=== PATIENT | female | born 1990 | race Caucasian/White ===

== ENCOUNTER → 2016-07-05 | Outpatient (CLI) | payer OTHER ==
[2016-02-04 19:41] VITALS: BP 130/75
[~2016-07-05] MED LIST: ALPR0.5T PO; BUSP15TA PO; CYCL10TA2 PO; ESCI10TA PO; GABA800T2 PO; NAPR500T3 PO; SULF1TAB24 PO
[2016-07-05 14:39] LABS: BASO % 0 % (0-3); EOS % 1 % (0-3); HEMATOCRIT 40.1 % (36.0-47.0); HEMOGLOBIN 13.3 g/dL (12.0-15.5); LYMPH # 1.4 x10^3/uL (1.0-4.8); LYMPH % 12 % (24-48); MEAN CORPUSCULAR HEMOGLOBIN 31 pg (25-35); MEAN CORPUSCULAR HGB CONC 33 g/dL (31-37); MEAN CORPUSCULAR VOLUME 94 fL (79-100); MONO % 5 % (0-9); NEUT % 81 % (31-73); PLATELET COUNT 245 x10^3/uL (140-400); RED BLOOD COUNT 4.25 x10^6/uL (3.50-5.40); RED CELL DISTRIBUTION WIDTH 14.1 % (11.5-14.5); WHITE BLOOD COUNT 11.6 x10^3/uL (4.0-11.0)
[2016-07-05 14:53] LABS: ALBUMIN 4.2 g/dL (3.4-5.0); ALBUMIN/GLOBULIN RATIO 1.4 (1.0-1.7); CALCIUM 9.1 mg/dL (8.5-10.1); CREATININE 0.7 mg/dL (0.6-1.0); GFR 101.1; POTASSIUM 4.2 mmol/L (3.5-5.1); TOTAL BILIRUBIN 0.4 mg/dL (0.2-1.0); TOTAL PROTEIN 7.3 g/dL (6.4-8.2)
== END | disposition home or self-care (01) ==
LOC: LAB 14:22
PROVIDERS: ATTEND Psychiatry & Neurology Psychiatry
DX: F31.63 Bipolar disorder, current episode mixed, severe, without psychotic features (principal)
CPT/HCPCS: 36415; 80053; 85027

== ENCOUNTER 2016-08-28 07:47 | Emergency (ER) | payer OTHER ==
[~2016-08-28] VITALS: Ht 157.5 cm; Wt 72.6 kg
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
[2016-08-28] MEDS ORDERED: BENZOCAINE/MENTHOL LOZENGE. PO STA (08:29)
[2016-08-28] MEDS ORDERED: IV NORMAL SALINE 1000ML BAG 1,000 ML IV ONE (08:30)
[2016-08-28 09:26] LABS: BASO % 0 % (0-3); EOS % 1 % (0-3); HEMOGLOBIN 13.4 g/dL (12.0-15.5); LYMPH # 1.3 x10^3/uL (1.0-4.8); LYMPH % 10 % (24-48); MEAN CORPUSCULAR HEMOGLOBIN 32 pg (25-35); MEAN CORPUSCULAR HGB CONC 35 g/dL (31-37); MEAN CORPUSCULAR VOLUME 90 fL (79-100); MONO % 7 % (0-9); NEUT % 82 % (31-73); PLATELET COUNT 250 x10^3/uL (140-400); RED BLOOD COUNT 4.21 x10^6/uL (3.50-5.40); RED CELL DISTRIBUTION WIDTH 12.5 % (11.5-14.5); WHITE BLOOD COUNT 13.8 x10^3/uL (4.0-11.0)
[2016-08-28 09:37] LABS: CALCIUM 9.3 mg/dL (8.5-10.1); CREATININE 0.8 mg/dL (0.6-1.0); GFR 86.7; POTASSIUM 3.5 mmol/L (3.5-5.1)
[2016-08-28 09:42] LABS: ETHANOL < 10 mg/dL (0-10)
[2016-08-28 09:43] LABS: ALBUMIN 4.4 g/dL (3.4-5.0); ALBUMIN/GLOBULIN RATIO 1.2 (1.0-1.7); MAGNESIUM 2.3 mg/dL (1.8-2.4); TOTAL BILIRUBIN 0.7 mg/dL (0.2-1.0); TOTAL PROTEIN 8.1 g/dL (6.4-8.2)
[2016-08-28] MEDS ORDERED: KETOROLAC TROMETHAMINE 30 MG/ML INJ. IV ONE (10:45)
[2016-08-28 11:08] VITALS: BP 135/81
[2016-08-28 11:19] LABS: BILIRUBIN,URINE NEGATIVE (NEG); GLUCOSE,URINE NEGATIVE (NEG); NITRITE,URINE POSITIVE (NEG); PROTEIN,URINE NEGATIVE (NEG-TRACE)
[2016-08-28 11:26] LABS: BARBITURATES NEG (NEG); BENZODIAZEPINES POS (NEG); CANNABINOIDS POS (NEG); COCAINE NEG (NEG); METHADONE NEG (NEG); OPIATES POS (NEG); PHENCYCLIDINE NEG (NEG)
[2016-08-28 11:30] LABS: BACTERIA,URINE MANY /HPF (0-FEW); RBC,URINE 0 /HPF (0-2); SQUAMOUS EPITHELIAL CELL,UR MOD /LPF
[2016-08-28] MEDS ORDERED: CIPR250T30 PO (11:37)
[2016-08-30 21:09] LABS: HERPES SIMPLEX TYPE 1 Negative (Negative); HERPES SIMPLEX TYPE 2 Negative (Negative)
== END 2016-08-28 11:31 | disposition home or self-care (01) ==
LOC: ER 07:47
DX: F12.10 Cannabis abuse, uncomplicated (principal); J02.9 Acute pharyngitis, unspecified; N39.0 Urinary tract infection, site not specified; F41.9 Anxiety disorder, unspecified; R00.0 Tachycardia, unspecified; F15.10 Other stimulant abuse, uncomplicated; R21 Rash and other nonspecific skin eruption
CPT/HCPCS: 36415; 80053; 80305; 80320; 81001; 81025; 82550; 83735; 85027; 87086; 87186; 87491; 87529; 87591; 96361; 96374; 96375; 96376; 99284; G0480; J1885; J2060; J7030; 80329; G0481

== ENCOUNTER 2016-08-28 21:52 | Inpatient (IN) | payer OTHER ==
[~2016-08-28] VITALS: Ht 157.5 cm; Wt 72.6 kg
[~2016-08-28 21:52] MED LIST changes: +CIPR250T30 PO
[2016-08-28] MEDS ORDERED: HALOPERIDOL LACTATE 5 MG/ML VIAL. ONE (22:50)
[2016-08-28] MEDS ORDERED: IV NORMAL SALINE 1000ML BAG 1,000 ML IV SCH (23:00)
[2016-08-28] MEDS ORDERED: HALOPERIDOL LACTATE 5 MG/ML VIAL. IM ONE (23:15)
[2016-08-28 23:17] LABS: BASO % 0 % (0-3); EOS % 2 % (0-3); HEMATOCRIT 37.4 % (36.0-47.0); HEMOGLOBIN 12.6 g/dL (12.0-15.5); LYMPH # 1.7 x10^3/uL (1.0-4.8); LYMPH % 13 % (24-48); MEAN CORPUSCULAR HEMOGLOBIN 31 pg (25-35); MEAN CORPUSCULAR HGB CONC 34 g/dL (31-37); MEAN CORPUSCULAR VOLUME 92 fL (79-100); MONO % 7 % (0-9); NEUT % 77 % (31-73); PLATELET COUNT 240 x10^3/uL (140-400); RED BLOOD COUNT 4.06 x10^6/uL (3.50-5.40); RED CELL DISTRIBUTION WIDTH 12.4 % (11.5-14.5); WHITE BLOOD COUNT 13.4 x10^3/uL (4.0-11.0)
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
[2016-08-28 23:29] LABS: CALCIUM 9.4 mg/dL (8.5-10.1); CREATININE 0.9 mg/dL (0.6-1.0); GFR 75.7; POTASSIUM 3.8 mmol/L (3.5-5.1)
[2016-08-28 23:35] LABS: ALBUMIN 4.3 g/dL (3.4-5.0); DIRECT BILIRUBIN 0.2 mg/dL (0.0-0.2); MAGNESIUM 2.3 mg/dL (1.8-2.4); TOTAL BILIRUBIN 0.9 mg/dL (0.2-1.0); TOTAL PROTEIN 7.6 g/dL (6.4-8.2)
[2016-08-29 00:22] LABS: BILIRUBIN,URINE SMALL (NEG); GLUCOSE,URINE NEGATIVE (NEG); NITRITE,URINE NEGATIVE (NEG); PH,URINE 5.5; PROTEIN,URINE 30 mg/dL (NEG-TRACE)
[2016-08-29 00:27] LABS: BARBITURATES NEG (NEG); BENZODIAZEPINES POS (NEG); CANNABINOIDS POS (NEG); COCAINE NEG (NEG); METHADONE NEG (NEG); OPIATES POS (NEG); PHENCYCLIDINE NEG (NEG)
[2016-08-29 00:29] LABS: BACTERIA,URINE MANY /HPF (0-FEW); RBC,URINE OCC /HPF (0-2); SQUAMOUS EPITHELIAL CELL,UR FEW /LPF; WBC,URINE 20-40 /HPF (0-4)
[2016-08-29] MEDS: IV NORMAL SALINE 1000ML BAG 1,000 ML IV SCH ×3 (00:29→19:59)
[2016-08-29] MEDS ORDERED: ONDANSETRON PF 4 MG/2 ML VIAL. IV PRN (00:30)
[2016-08-29] MEDS ORDERED: HALOPERIDOL LACTATE 5 MG/ML VIAL. IVP PRN (00:30)
--- NOTE | 2016-08-29 00:53 | ACF ---
Admit Criteria Forms Admit Criteria Forms Admit Criteria Forms MENTAL STATUS CHANGE Clinical Indications for Inpatient Care (Place 'X' for any and all applicable criteria): Ongoing inpatient care may be needed for 1 or more of the following(1)(2)(3)(5)( 6): [X ]I. Suspected serious etiology (eg, medical disorder, PAINT GRINDER event) of altered mental status [ ]II. Danger to self or others not manageable at lower level of care [ ]III. Grave disability (eg, inability to perform self care necessary at lower level of care) [ ]IV. Agitation or inappropriate behavior interfering with care for primary condition (eg, attempting to discontinue lines or drains prematurely, unable to cooperate with respiratory care) [ ]V. Delirium [A] [D][E] as described by 1 or more of the following(26): [ ]a) Delirium due to alcohol or sedative [F] withdrawal [ ]b) Delirium of uncertain etiology that has not responded to appropriate empiric treatment [ ]c) Delirium that prevents performance of a life-sustaining function (eg, feeding or hydrating oneself) [ ]. General contraindications and/or Inappropriate clinical situations for Observational Care in patients with Mental Status Change, when ANY ONE of the following is required: [ ]a) Prediction of prolongation of LOS based on ANY ONE of the following may be considered as a contraindication for observational care 2, 3, 4, 5, 6, 7, 8, 9, 10, 11 [ ]i) Age > 65 yrs. [ ]ii) Patient arriving by ambulance [ ]iii) Patient with high acuity [ ]iv) Patient requiring vital sign monitoring [ ]v) Patient on IV medication [ ]b) Systolic blood pressures greater than or equal to 180mmHg 3, 12 [ ]c) Patient with altered mental status including delirium and other alteration of consciousness, (3) [ ]d) Patient whose discharge disposition will be to a long term home or rehabilitation home should not be managed in Emergency Department Observation Unit. CMS rule requires 3 days hospital stay before such placement.3,13 [ ]e) Patient with failure to thrive due to broad array of etiologies 3,16,17 [ ]f) Inability to ambulate 3,14 Extended stay beyond goal length of stay for the primary condition may be needed until ALL of the following are present(3)(5): [ ]a) Underlying medical etiology of mental status change is absent, or has been established and adequately treated [ ]b) Danger to self or others is absent or manageable at lower level of care. [ ]c) Behavior crisis management, including physical or chemical restraints, is not required or available at lower level of car [ ]d) Substance or alcohol withdrawal is absent or manageable at lower level of care. [ ]e) Behavioral symptoms (eg, agitation, somnolence, inappropriate behavior) are absent, or are manageable at lower level of care. The original [facility] [employer] content created by [facility] has been revised. The portions of the content which have been revised are identified through the use of italic text or in bold, and [facility] has neither reviewed nor approved the modified material. All other unmodified content is copyright [facility]. Please see references footnoted in the original [facility] [employer] edition 2016 TOÑITO MARTI August 29, 2016 00:53
[2016-08-29 02:00] VITALS: BP 120/84
[2016-08-29 07:25] VITALS: BP 115/71
--- NOTE | 2016-08-29 07:34 | EKG ---
[facility] [address] [place] [address] Test Date: 2016-08-29 Test Time: 00:06:18 Pat Name: RHIANNA CONRAD Department: Room: 508 Gender: Female Hypo Dipper: : 1990 Requested By: ERICH FAULKNER Order Number: [id number] Reading MD: Ru Gregorio Measurements Intervals [place] Rate: 95 P: 56 [place]: 156 QRS: 12 QRSD: 90 T: 10 QT: 366 QTc: 463 Interpretive Statements SINUS RHYTHM Electronically Signed On 09-02-2016 13:38:13 CDT by Ru Gregorio
--- NOTE | 2016-08-29 08:30 | PDOC1 ---
History and Physical Date of Admission Date of Admission DATE: 08/29/16 TIME: 08:28 Identification/Chief Complaint Chief Complaint confusion, encephalopathy Problems: Source Source: Chart review, Patient History of Present Illness History of Present Illness Ms. Erickson is a 25 year old female admit overnight for altered mental status. The patient was found wandering in the middle of a road and bystanders, EMS brought her to the emergency department. S/p meth and THC use and treated for UTI, she was delirious and confused in the ER. IV fluid, pt hard asleep this AM 0800/ when awakened at 10am, she complained of severe throat pain, could not swallow , and is emotional and agitated she cannot reach her father by phone Past Medical History Cardiovascular: No pertinent hx Pulmonary: No pertinent hx GI: No pertinent hx Heme/Onc: No pertinent hx Hepatobiliary: No pertinent hx Psych: Anxiety, Addictions Rheumatologic: No pertinent hx Family History Family History: No Significant Social History Drugs: Marijuana, Crystal meth Current Problem List Problem List Problems Medical Problems: (1) Acute encephalopathy Status: Acute (2) Substance abuse Status: Acute (3) UTI (urinary tract infection) Status: Acute Problems: Current Medications Current Medications Current Medications Sodium Chloride 1,000 ml @ 1,000 mls/hr Q1H IV Last administered on 08/28/16 23:00; Start 08/28/16 at 23:00; Stop 08/28/16 at 23:59; Status DC Haloperidol Lactate (Haldol) 5 mg 1X ONCE IM Last administered on 08/28/16 22 :53; Start 08/28/16 at 23:15; Stop 08/28/16 at 23:16; Status DC Lorazepam (Ativan) 2 mg 1X ONCE IM Last administered on 08/28/16 22:52; Start 08/28/16 at 23:15; Stop 08/28/16 at 23:16; Status DC Haloperidol Lactate (Haldol) 5 mg STK-MED ONCE .ROUTE ; Start 08/28/16 at 22:50 ; Stop 08/28/16 at 22:51; Status DC Lorazepam (Ativan) 2 mg STK-MED ONCE .ROUTE ; Start 08/28/16 at 22:50; Stop at 22:51; Status DC Ondansetron HCl (Zofran) 4 mg PRN Q8HRS PRN IV NAUSEA/VOMITING; Start 08/29/16 at 00:30; Stop 08/30/16 at 00:29 Sodium Chloride 1,000 ml @ 100 mls/hr Q10H IV Last administered on 08/29/16 00:29; Start 08/29/16 at 00:29; Stop 08/30/16 at 00:28 Haloperidol Lactate (Haldol) 5 mg PRN Q6HRS PRN IVP AGITATION; Start 08/29/16 at 00:30 Ceftriaxone Sodium 1 gm/ Sodium Chloride 50 ml @ 100 mls/hr Q24H IV Last administered on 08/29/16 04:25; Start 08/29/16 at 05:00 Active Scripts Active Cipro (Ciprofloxacin Hcl) 250 Mg Tablet 1 Tab PO BID Reported Escitalopram Oxalate 10 Mg Tablet 1 Tab PO DAILY Buspirone Hcl 15 Mg Tablet 1 Tab PO BID Xanax (Alprazolam) 0.5 Mg Tablet 1 Tab PO BID Naproxen 500 Mg Tablet 1 Tab PO BID Cyclobenzaprine Hcl 10 Mg Tablet 1 Tab PO TID Gabapentin 800 Mg Tablet 800 Mg PO TID Allergies Allergies: Coded Allergies: No Known Drug Allergies (Unverified , 01/12/16) ROS General: YES: Fatigue, Malaise, No: Chills, Night Sweats, Appetite, Other PSYCHOLOGICAL ROS: YES: Anxiety, Irritablity, Memory difficulties, Obsessive thoughts Eyes: No Blurry vision, No Decreased vision, No Double vision, No Dry eyes, No Excessive tearing, No Eye Pain, No Itchy Eyes, No Loss of vision, No Photophobia , No Scotomata, No Uses contacts, No Uses glasses, No Other HEENT: YES: Oral lesions, Sore Throat, Other (painful swallowing), No: Heacaches, Visual Changes, Hearing change, Nasal congestion, Nasal discharge, Sinus pain, Epistaxis, Sneezing Hematological and Lymphatic: No: Bleeding Problems, Blood Clots, Blood Transfusions, Brusing, Night Sweats, Pallor, Swollen Lymph Nodes, Other Respiratory: No: Cough, Hemoptysis, Orthopnea, Pleuritic Pain, Shortness of breath, SOB with excertion, Sputum Changes, Stridor, Tachypnea, Wheezing, Other Cardiovascular: No Chest Pain, No Palpitations, No Orthopnea, No Paroxysmal Noc. Dyspnea, No Edema, No Lt Headedness, No Other Gastrointestinal: No Nausea, No Vomiting, No Abdominal Pain, No Diarrhea, No Constipation, No Melena, No Hematochezia, No Other Genitourinary: No Dysuria, No Frequency, No Incontinence, No Hematuria, No Retention, No Discharge, No Urgency, No Pain, No Flank Pain, No Other, No , No , No , No , No , No , No Musculoskeletal: No Gait Disturbance, No Joint Pain, No Joint Stiffness, No Joint Swelling, No Muscle Pain, No Muscular Weakness, No Pain In:, No Swelling In:, No Other Neurological: No Behavorial Changes, No Bowel/Bladder ControlChng, No Confusion , No Dizziness, No Gait Disturbance, No Headaches, No Impaired Coord/balance, No Memory Loss, No Numbness/Tingling, No Seizures, No Speech Problems, No Tremors, No Visual Changes, No Weakness, No Other Skin: No Dry Skin, No Eczema, No Hair Changes, No Lumps, No Mole Changes, No Mottling, No Nail Changes, No Pruritus, No Rash, No Skin Lesion Changes, No Other, No Acne Physical Exam General: Oriented X3 HEENT: Atraumatic, PERRLA, Other (folliculat exudate on uvula) Heart: S1S2, no murmurs Rectal Exam: not examined Extremities: No clubbing, No cyanosis, No edema Skin: No significant lesion Neuro: Normal gait, Strength at 5/5 X4 ext Psych/Mental Status: Other (emotional, tangential) Vitals Vitals Vital Signs Date Time Temp Pulse Resp B/P (MAP) Pulse Ox O2 Delivery O2 Flow Rate FiO2 08/29/16 02:00 97.5 82 18 120/84 (96) 100 Room Air 97.5 Labs Labs Laboratory Tests Test 08/28/16 00:10 08/28/16 23:00 Urine Collection Type U cath Urine Color [place]la Urine Clarity Clear Urine pH 5.5 Urine Specific [place] >=1.030 Urine Protein 30 mg/dL (NEG-TRACE) Urine Glucose (UA) Negative mg/dL (NEG) Urine Ketones (Stick) >=80 mg/dL (NEG) Urine Blood Trace (NEG) Urine Nitrite Negative (NEG) Urine Bilirubin Small (NEG) Urine Urobilinogen Dipstick 1.0 mg/dL (0.2 mg/dL) Urine Leukocyte Esterase Large (NEG) Urine RBC Occ /HPF (0-2) Urine WBC 20-40 /HPF (0-4) Urine Squamous Epithelial Cells Few /LPF Urine Bacteria Many /HPF (0-FEW) Urine Mucus Marked /LPF Urine Opiates Screen Pos (NEG) Urine Methadone Screen Neg (NEG) Urine Barbiturates Neg (NEG) Urine Phencyclidine Screen Neg (NEG) Urine Amphetamine/Methamphetamine Pos (NEG) Urine Benzodiazepines Screen Pos (NEG) Urine Cocaine Screen Neg (NEG) Urine Cannabinoids Screen Pos (NEG) Urine Ethyl Alcohol Neg (NEG) White Blood Count 13.4 x10^3/uL (4.0-11.0) Red Blood Count 4.06 x10^6/uL (3.50-5.40) Hemoglobin 12.6 g/dL (12.0-15.5) Hematocrit 37.4 % (36.0-47.0) Mean Corpuscular Volume 92 fL (79-100) Mean Corpuscular Hemoglobin 31 pg (25-35) Mean Corpuscular Hemoglobin Concent 34 g/dL (31-37) Red Cell Distribution Width 12.4 % (11.5-14.5) Platelet Count 240 x10^3/uL (140-400) Neutrophils (%) (Auto) 77 % (31-73) Lymphocytes (%) (Auto) 13 % (24-48) Monocytes (%) (Auto) 7 % (0-9) Eosinophils (%) (Auto) 2 % (0-3) Basophils (%) (Auto) 0 % (0-3) Neutrophils # (Auto) 10.4 x10^3uL (1.8-7.7) Lymphocytes # (Auto) 1.7 x10^3/uL (1.0-4.8) Monocytes # (Auto) 1.0 x10^3/uL (0.0-1.1) Eosinophils # (Auto) 0.3 x10^3/uL (0.0-0.7) Basophils # (Auto) 0.0 x10^3/uL (0.0-0.2) Sodium Level 145 mmol/L (136-145) Potassium Level 3.8 mmol/L (3.5-5.1) Chloride Level 106 mmol/L (98-107) Carbon Dioxide Level 25 mmol/L (21-32) Anion Gap 14 (6-14) Blood Urea Nitrogen 13 mg/dL (7-20) Creatinine 0.9 mg/dL (0.6-1.0) Estimated GFR (Cockcroft-Gault) 75.7 Glucose Level 82 mg/dL (70-99) Calcium Level 9.4 mg/dL (8.5-10.1) Magnesium Level 2.3 mg/dL (1.8-2.4) Total Bilirubin 0.9 mg/dL (0.2-1.0) Direct Bilirubin 0.2 mg/dL (0.0-0.2) Aspartate Amino Transf (AST/SGOT) 35 U/L (15-37) Alanine Aminotransferase (ALT/SGPT) 29 U/L (14-59) Alkaline Phosphatase 83 U/L (46-116) Total Protein 7.6 g/dL (6.4-8.2) Albumin 4.3 g/dL (3.4-5.0) Ethyl Alcohol Level < 10 mg/dL (0-10) Laboratory Tests Test 08/28/16 23:00 White Blood Count 13.4 x10^3/uL (4.0-11.0) Red Blood Count 4.06 x10^6/uL (3.50-5.40) Hemoglobin 12.6 g/dL (12.0-15.5) Hematocrit 37.4 % (36.0-47.0) Mean Corpuscular Volume 92 fL (79-100) Mean Corpuscular Hemoglobin 31 pg (25-35) Mean Corpuscular Hemoglobin Concent 34 g/dL (31-37) Red Cell Distribution Width 12.4 % (11.5-14.5) Platelet Count 240 x10^3/uL (140-400) Neutrophils (%) (Auto) 77 % (31-73) Lymphocytes (%) (Auto) 13 % (24-48) Monocytes (%) (Auto) 7 % (0-9) Eosinophils (%) (Auto) 2 % (0-3) Basophils (%) (Auto) 0 % (0-3) Neutrophils # (Auto) 10.4 x10^3uL (1.8-7.7) Lymphocytes # (Auto) 1.7 x10^3/uL (1.0-4.8) Monocytes # (Auto) 1.0 x10^3/uL (0.0-1.1) Eosinophils # (Auto) 0.3 x10^3/uL (0.0-0.7) Basophils # (Auto) 0.0 x10^3/uL (0.0-0.2) Sodium Level 145 mmol/L (136-145) Potassium Level 3.8 mmol/L (3.5-5.1) Chloride Level 106 mmol/L (98-107) Carbon Dioxide Level 25 mmol/L (21-32) Anion Gap 14 (6-14) Blood Urea Nitrogen 13 mg/dL (7-20) Creatinine 0.9 mg/dL (0.6-1.0) Estimated GFR (Cockcroft-Gault) 75.7 Glucose Level 82 mg/dL (70-99) Calcium Level 9.4 mg/dL (8.5-10.1) Magnesium Level 2.3 mg/dL (1.8-2.4) Total Bilirubin 0.9 mg/dL (0.2-1.0) Direct Bilirubin 0.2 mg/dL (0.0-0.2) Aspartate Amino Transf (AST/SGOT) 35 U/L (15-37) Alanine Aminotransferase (ALT/SGPT) 29 U/L (14-59) Alkaline Phosphatase 83 U/L (46-116) Total Protein 7.6 g/dL (6.4-8.2) Albumin 4.3 g/dL (3.4-5.0) Ethyl Alcohol Level < 10 mg/dL (0-10) VTE Prophylaxis Ordered VTE Prophylaxis Devices: No VTE Pharmacological Prophylaxi: No Assessment/Plan Assessment/Plan polysubstance abuse encephalopathy, toxic, UTI, sepsis strep pharyngitis, concern for mult infections. pt declined HIV testing to me now. admitted, DC when able to perform ADls LISSY STRONG MD August 29, 2016 08:30
[2016-08-29] MEDS ORDERED: ACETAMINOPHEN 325 MG TABLET. PO PRN (10:45)
[2016-08-29] MEDS: NAPROXEN 500 MG TABLET PO SCH ×2 (10:46→20:02)
[2016-08-29] MEDS: busPIRone 5 MG TABLET. PO SCH ×2 (10:46→20:01)
[2016-08-29] MEDS: ALPRAZolam 0.5 MG TABLET PO SCH ×2 (10:47→20:01)
[2016-08-29] MEDS: GABAPENTIN 400 MG CAPSULE. PO SCH ×3 (10:47→20:03)
[2016-08-29] MEDS: BENZOCAINE/MENTHOL LOZENGE. PO PRN ×3 (10:49→20:00)
[2016-08-29] MEDS: ESCITALOPRAM 10 MG TABLET. PO SCH (10:49)
[2016-08-29] MEDS: NYSTATIN 100,000 UNITS/ML 5 ML ORAL.SUSP. SWSW SCH ×4 (10:57→20:03)
[2016-08-29 11:02] LABS: NEGATIVE OBC STREP NEG; POSITIVE OBC STREP POS
[2016-08-29 11:28] VITALS: BP 127/76
[2016-08-29] MEDS ORDERED: ALPRAZolam 1 MG TABLET PO PRN (15:30)
[2016-08-29 15:45] VITALS: BP 121/73
[2016-08-29 19:00] VITALS: BP 125/81
[2016-08-29] MEDS: CYCLOBENZAPRINE 10 MG TABLET. PO PRN (20:07)
[2016-08-29 22:26] VITALS: BP 141/90
[2016-08-30 04:26] LABS: BASO % 1 % (0-3); EOS % 7 % (0-3); HEMATOCRIT 35.5 % (36.0-47.0); HEMOGLOBIN 11.9 g/dL (12.0-15.5); LYMPH # 1.7 x10^3/uL (1.0-4.8); LYMPH % 35 % (24-48); MEAN CORPUSCULAR HEMOGLOBIN 32 pg (25-35); MEAN CORPUSCULAR HGB CONC 34 g/dL (31-37); MEAN CORPUSCULAR VOLUME 94 fL (79-100); MONO % 11 % (0-9); NEUT % 46 % (31-73); PLATELET COUNT 208 x10^3/uL (140-400); RED BLOOD COUNT 3.79 x10^6/uL (3.50-5.40); RED CELL DISTRIBUTION WIDTH 12.8 % (11.5-14.5); WHITE BLOOD COUNT 4.9 x10^3/uL (4.0-11.0)
[2016-08-30 04:57] LABS: CALCIUM 8.3 mg/dL (8.5-10.1); CREATININE 0.7 mg/dL (0.6-1.0); GFR 101.1; POTASSIUM 3.7 mmol/L (3.5-5.1)
[2016-08-30 07:00] VITALS: BP 118/79
[2016-08-30] MEDS: NYSTATIN 100,000 UNITS/ML 5 ML ORAL.SUSP. SWSW SCH ×2 (09:03→12:21)
[2016-08-30] MEDS: ESCITALOPRAM 10 MG TABLET. PO SCH (09:03)
[2016-08-30] MEDS: GABAPENTIN 400 MG CAPSULE. PO SCH ×2 (09:04→14:09)
[2016-08-30] MEDS: ALPRAZolam 0.5 MG TABLET PO SCH (09:04)
[2016-08-30] MEDS: busPIRone 5 MG TABLET. PO SCH (09:04)
[2016-08-30] MEDS: NAPROXEN 500 MG TABLET PO SCH (09:04)
--- NOTE | 2016-08-30 10:14 | PDOC ---
Infectious Disease Note ROS ROS Vital Sign Vital Signs Vital Signs Date Time Temp Pulse Resp B/P (MAP) Pulse Ox O2 Delivery O2 Flow Rate FiO2 08/30/16 07:00 97.7 88 20 118/79 (92) 97 Room Air 97.7 Labs Lab Laboratory Tests Test 08/29/16 10:30 08/30/16 04:05 Group A Streptococcus Rapid Negative (NEGATIVE) White Blood Count 4.9 x10^3/uL (4.0-11.0) Red Blood Count 3.79 x10^6/uL (3.50-5.40) Hemoglobin 11.9 g/dL (12.0-15.5) Hematocrit 35.5 % (36.0-47.0) Mean Corpuscular Volume 94 fL (79-100) Mean Corpuscular Hemoglobin 32 pg (25-35) Mean Corpuscular Hemoglobin Concent 34 g/dL (31-37) Red Cell Distribution Width 12.8 % (11.5-14.5) Platelet Count 208 x10^3/uL (140-400) Neutrophils (%) (Auto) 46 % (31-73) Lymphocytes (%) (Auto) 35 % (24-48) Monocytes (%) (Auto) 11 % (0-9) Eosinophils (%) (Auto) 7 % (0-3) Basophils (%) (Auto) 1 % (0-3) Neutrophils # (Auto) 2.3 x10^3uL (1.8-7.7) Lymphocytes # (Auto) 1.7 x10^3/uL (1.0-4.8) Monocytes # (Auto) 0.5 x10^3/uL (0.0-1.1) Eosinophils # (Auto) 0.3 x10^3/uL (0.0-0.7) Basophils # (Auto) 0.0 x10^3/uL (0.0-0.2) Sodium Level 145 mmol/L (136-145) Potassium Level 3.7 mmol/L (3.5-5.1) Chloride Level 109 mmol/L (98-107) Carbon Dioxide Level 27 mmol/L (21-32) Anion Gap 9 (6-14) Blood Urea Nitrogen 11 mg/dL (7-20) Creatinine 0.7 mg/dL (0.6-1.0) Estimated GFR (Cockcroft-Gault) 101.1 Glucose Level 90 mg/dL (70-99) Calcium Level 8.3 mg/dL (8.5-10.1) Objective Assessment Oral ulcerations Vaginal ulcerations - HSV collected 08/28 Ecoli UTI - POA res to quinolone/Bactrim and tetracycline - d/w keysha Substance abuse Plan Plan of Care Can change to po amoxicillin for d/c for 5 days test Add on HIV/RPR Azithromycin 1 gm po times one F/u Primary care for HSV, etc Thank you # [phone] JAVIER LEUNG MD August 30, 2016 10:14
[2016-08-30 11:00] VITALS: BP 107/70
[2016-08-30] MEDS ORDERED: AZITHROMYCIN 250 MG TABLET. PO ONE (11:00)
[2016-08-30] MEDS: CYCLOBENZAPRINE 10 MG TABLET. PO PRN (12:20)
[2016-08-30] MEDS: BENZOCAINE/MENTHOL LOZENGE. PO PRN (12:23)
[2016-08-30 13:16] LABS: NEG OBC UR NEG; POS OBC UR POS
[2016-08-30] MEDS ORDERED: AMOXICILLIN 250 MG CAPSULE. PO SCH (14:00)
[2016-08-30] MEDS ORDERED: AMOX250C PO (14:03)
--- NOTE | 2016-08-30 14:08 | PDOC3 ---
Discharge Summary Visit Information Date of Admission: August 29, 2016 Date of Discharge: August 30, 2016 Admitting Diagnosis: encephalopathy Final Diagnosis polysubstance abuse including meth, THC encephalopathy, toxic, UTI, sepsis strep pharyngitis, anxiety d/o long standing per patient Problems Medical Problems: (1) Acute encephalopathy Status: Acute (2) Substance abuse Status: Acute (3) UTI (urinary tract infection) Status: Acute Brief Hospital Course Allergies Allergies Coded Allergies Type Severity Reaction Last Updated Verified No Known Drug Allergies 01/12/16 No Vital Signs Vital Signs Date Time Temp Pulse Resp B/P (MAP) Pulse Ox O2 Delivery O2 Flow Rate FiO2 08/30/16 11:00 97.7 80 20 107/70 (82) 98 Room Air 97.7 Lab Results Laboratory Tests Test 08/28/16 23:00 08/29/16 10:30 08/30/16 04:05 08/30/16 13:00 White Blood Count 13.4 x10^3/uL (4.0-11.0) 4.9 x10^3/uL (4.0-11.0) Red Blood Count 4.06 x10^6/uL (3.50-5.40) 3.79 x10^6/uL (3.50-5.40) Hemoglobin 12.6 g/dL (12.0-15.5) 11.9 g/dL (12.0-15.5) Hematocrit 37.4 % (36.0-47.0) 35.5 % (36.0-47.0) Mean Corpuscular Volume 92 fL (79-100) 94 fL (79-100) Mean Corpuscular Hemoglobin 31 pg (25-35) 32 pg (25-35) Mean Corpuscular Hemoglobin Concent 34 g/dL (31-37) 34 g/dL (31-37) Red Cell Distribution Width 12.4 % (11.5-14.5) 12.8 % (11.5-14.5) Platelet Count 240 x10^3/uL (140-400) 208 x10^3/uL (140-400) Neutrophils (%) (Auto) 77 % (31-73) 46 % (31-73) Lymphocytes (%) (Auto) 13 % (24-48) 35 % (24-48) Monocytes (%) (Auto) 7 % (0-9) 11 % (0-9) Eosinophils (%) (Auto) 2 % (0-3) 7 % (0-3) Basophils (%) (Auto) 0 % (0-3) 1 % (0-3) Neutrophils # (Auto) 10.4 x10^3uL (1.8-7.7) 2.3 x10^3uL (1.8-7.7) Lymphocytes # (Auto) 1.7 x10^3/uL (1.0-4.8) 1.7 x10^3/uL (1.0-4.8) Monocytes # (Auto) 1.0 x10^3/uL (0.0-1.1) 0.5 x10^3/uL (0.0-1.1) Eosinophils # (Auto) 0.3 x10^3/uL (0.0-0.7) 0.3 x10^3/uL (0.0-0.7) Basophils # (Auto) 0.0 x10^3/uL (0.0-0.2) 0.0 x10^3/uL (0.0-0.2) Sodium Level 145 mmol/L (136-145) 145 mmol/L (136-145) Potassium Level 3.8 mmol/L (3.5-5.1) 3.7 mmol/L (3.5-5.1) Chloride Level 106 mmol/L (98-107) 109 mmol/L (98-107) Carbon Dioxide Level 25 mmol/L (21-32) 27 mmol/L (21-32) Anion Gap 14 (6-14) 9 (6-14) Blood Urea Nitrogen 13 mg/dL (7-20) 11 mg/dL (7-20) Creatinine 0.9 mg/dL (0.6-1.0) 0.7 mg/dL (0.6-1.0) Estimated GFR (Cockcroft-Gault) 75.7 101.1 Glucose Level 82 mg/dL (70-99) 90 mg/dL (70-99) Calcium Level 9.4 mg/dL (8.5-10.1) 8.3 mg/dL (8.5-10.1) Magnesium Level 2.3 mg/dL (1.8-2.4) Total Bilirubin 0.9 mg/dL (0.2-1.0) Direct Bilirubin 0.2 mg/dL (0.0-0.2) Aspartate Amino Transf (AST/SGOT) 35 U/L (15-37) Alanine Aminotransferase (ALT/SGPT) 29 U/L (14-59) Alkaline Phosphatase 83 U/L (46-116) Total Protein 7.6 g/dL (6.4-8.2) Albumin 4.3 g/dL (3.4-5.0) Ethyl Alcohol Level < 10 mg/dL (0-10) Group A Streptococcus Rapid Negative (NEGATIVE) Urine Test Negative (NEG) Laboratory Tests Test 08/30/16 04:05 08/30/16 13:00 White Blood Count 4.9 x10^3/uL (4.0-11.0) Red Blood Count 3.79 x10^6/uL (3.50-5.40) Hemoglobin 11.9 g/dL (12.0-15.5) Hematocrit 35.5 % (36.0-47.0) Mean Corpuscular Volume 94 fL (79-100) Mean Corpuscular Hemoglobin 32 pg (25-35) Mean Corpuscular Hemoglobin Concent 34 g/dL (31-37) Red Cell Distribution Width 12.8 % (11.5-14.5) Platelet Count 208 x10^3/uL (140-400) Neutrophils (%) (Auto) 46 % (31-73) Lymphocytes (%) (Auto) 35 % (24-48) Monocytes (%) (Auto) 11 % (0-9) Eosinophils (%) (Auto) 7 % (0-3) Basophils (%) (Auto) 1 % (0-3) Neutrophils # (Auto) 2.3 x10^3uL (1.8-7.7) Lymphocytes # (Auto) 1.7 x10^3/uL (1.0-4.8) Monocytes # (Auto) 0.5 x10^3/uL (0.0-1.1) Eosinophils # (Auto) 0.3 x10^3/uL (0.0-0.7) Basophils # (Auto) 0.0 x10^3/uL (0.0-0.2) Sodium Level 145 mmol/L (136-145) Potassium Level 3.7 mmol/L (3.5-5.1) Chloride Level 109 mmol/L (98-107) Carbon Dioxide Level 27 mmol/L (21-32) Anion Gap 9 (6-14) Blood Urea Nitrogen 11 mg/dL (7-20) Creatinine 0.7 mg/dL (0.6-1.0) Estimated GFR (Cockcroft-Gault) 101.1 Glucose Level 90 mg/dL (70-99) Calcium Level 8.3 mg/dL (8.5-10.1) Urine Test Negative (NEG) Brief Hospital Course Ms. Erickson is a 25 old admit confused agitated, toxic from ingestion and UTI, UTI and strep throat. HIV pending unable to swallow first day, better at DC, pharyngitis much improved one day Discharge Information Condition at Discharge: Improved Follow Up: Weeks Disposition/Orders: D/C to Home Scheduled Alprazolam (Xanax), 1 TAB PO BID, (Reported) Buspirone Hcl (Buspirone Hcl), 1 TAB PO BID, (Reported) Ciprofloxacin Hcl (Cipro), 1 TAB PO BID Cyclobenzaprine Hcl (Cyclobenzaprine Hcl), 1 TAB PO TID, (Reported) Gabapentin (Gabapentin), 800 MG PO TID, (Reported) Naproxen (Naproxen), 1 TAB PO BID, (Reported) Discontinued Medications Escitalopram Oxalate (Escitalopram Oxalate), 1 TAB PO DAILY, (Reported) Patient Instructions Patient Instructions time > 30 min 5 days amoxicillin 500 TID LISSY STRONG MD August 30, 2016 14:08
--- NOTE | 2016-08-30 21:41 | CONS ---
DATE OF CONSULTATION: 08/30/2016 INFECTIOUS DISEASE CONSULTATION LOCATION: Room 508. REQUESTING PHYSICIAN: Dr. Banerjee. REASON FOR CONSULTATION: Follicles on uvula, questionable Strep. HISTORY OF PRESENT ILLNESS: The patient is a 25-year-old female with a history of substance abuse. She relates over the weekend that she took a hit of a pipe; she said it was meth, but she is uncertain what it was. Initially, she took some smoke from the girl that she was daily she using the meth with and then took an additional hit of the pipe. She states when she took that second exposure to the meth, she irritated her throat. She then became confused and thought like she was drugged. She had presented to the Emergency Room on 08/28/2016, was brought in by her father apparently, secondary to anxiety, shortness of air, and sore throat. She admits to smoking marijuana and tobacco. She also was having some vaginal pain, a [employer]ING [employer]PER[employer] noted that she had a tampon, she had a right labial and perineal area which has some maculopapular rash, did not appear vesicular, but PCR was obtained. I think she was subsequently discharged, but returned that evening secondary to altered mental status. Apparently, she was wandering in the road and 911 was called and apparently, she was talking to people that were not present. Her white count initially, when she presented in the morning, was 13.8, improved to 13.4 at the time of her presentation. Urinalysis was obtained, she has a moderate amount of squamous cells, many bacteria, leukocyte esterase was small, nitrite was positive and she was placed on Rocephin. She was noted that she has some oral ulcerations and was consulted. She denies any previous oral ulcerations prior to smoking this meth or her marijuana. She states that she had some ulcerations in the vaginal area previously when she was . She is uncertain if she has ever carried a diagnosis of herpes. She has also engaged in oral sex. She does know her partner, but uncertain if there is any other concerns about the partner or not. Currently, she is feeling better. She ate better. She denies any gross headaches. No fevers or chills or sweats. She does have a history of previous urinary tract infections, has otherwise been quite some time. She denies any current symptoms. PAST MEDICAL HISTORY: Positive for previous UTI. She has a history of substance abuse. PAST SURGICAL HISTORY: She denies any surgeries. SOCIAL HISTORY: Positive for marijuana, meth, and tobacco use. ALLERGIES: No known drug allergies. FAMILY HISTORY: Noncontributory. CURRENT MEDICATIONS: Include Rocephin, Xanax, BuSpar, Flexeril, Lexapro, and Neurontin. Her meds are available, have been reviewed in the chart. PHYSICAL EXAMINATION: VITAL SIGNS: She is afebrile, temperature 97.7, pulse 80, respirations 20, blood pressure 118/79, satting 97% on room air. CONSTITUTIONAL: She is cooperative. She is no acute distress. She is lying in bed. HEENT: Pupils are equal and reactive. Normal conjunctivae. Oral cavity: Oropharynx, she does have some mild oral ulcerations on the uvular area. Teeth are without signs of any complications. She has piercings. NECK: Supple. Good range of motion. LUNGS: Clear to auscultation bilaterally. HEART: S1, S2. ABDOMEN: Soft, nontender, nondistended, with positive bowel sounds. She does have a piercing in her umbilical area. EXTREMITIES: No clubbing, cyanosis, or gross edema. SKIN: Warm to touch without signs of rash. NEUROLOGIC: She moves all extremities. PSYCHIATRIC: Affect was flat. LABORATORY DATA: White count 4.9, hemoglobin 11.9, platelets 208, neutrophils 46, lymphs 35, creatinine 0.7, glucose 90. She had normal liver function study tests. Urinalysis reviewed in history of present illness. Drug screen was positive for opiates as well as amphetamine, meth, and cannabinoids. Group A strep was negative. IMPRESSION: 1. Oral ulcerations. 2. Vaginal ulcerations with herpes simplex virus, collected on 08/28/2016. 3. Escherichia coli urinary tract infection present on admission, resistant to quinolones, Bactrim and tetracycline. This was discussed with micro. 4. Substance abuse. RECOMMENDATIONS: We will change to p.o. amoxicillin for discharge for 5 days. Obtain a test. We will add on HIV as well as RPR and dose a gram of azithromycin x 1. She can follow up with her primary care for followup. Thanks for allowing me to participate in this patient's care. If you have any questions, please do not hesitate to contact me. JAVIER LEUNG MD DR: Alexy JOB#: [id number] / [id number]
[2016-08-31 06:15] LABS: RPR REFLEX Non Reactive (Non Reactive)
== END 2016-08-30 15:38 | disposition home or self-care (01) | DRG 871 ==
LOC: ER 22:17 → 5 NORTH 23:52
PROVIDERS: ADMIT Internal Medicine; ATTEND Internal Medicine
DX: A41.9 Sepsis, unspecified organism (principal); G92 Toxic encephalopathy; N39.0 Urinary tract infection, site not specified; J02.0 Streptococcal pharyngitis; F41.9 Anxiety disorder, unspecified; N76.5 Ulceration of vagina; B00.9 Herpesviral infection, unspecified; F19.10 Other psychoactive substance abuse, uncomplicated; F12.10 Cannabis abuse, uncomplicated; B96.20 Unspecified Escherichia coli [E. coli] as the cause of diseases classified elsewhere; Z72.0 Tobacco use; Z79.899 Other long term (current) drug therapy
CPT/HCPCS: 36415; 80048; 80076; 81001; 81025; 83735; 85027; 86593; 86703; 87070; 87086; 87186; 87880; 93005; 96360; 96372; G0480; G0481; J0696; J1630; J2060; J7030; Q0144; 99285-25

== ENCOUNTER → 2016-10-19 | Outpatient (CLI) | payer OTHER ==
[~2016-10-19] MED LIST changes: +AMOX250C PO; -ESCI10TA PO; +ESCITALOPRAM OX10 MG PO
[2016-10-19 15:41] LABS: ALBUMIN 4.6 g/dL (3.4-5.0); ALBUMIN/GLOBULIN RATIO 1.5 (1.0-1.7); CREATININE 0.7 mg/dL (0.6-1.0); GFR 101.1; POTASSIUM 4.2 mmol/L (3.5-5.1); TOTAL BILIRUBIN 0.5 mg/dL (0.2-1.0); TOTAL PROTEIN 7.7 g/dL (6.4-8.2)
== END | disposition home or self-care (01) ==
LOC: LAB 15:05
PROVIDERS: ATTEND Psychiatry & Neurology Psychiatry
DX: F31.63 Bipolar disorder, current episode mixed, severe, without psychotic features (principal)
CPT/HCPCS: 36415; 80053

== ENCOUNTER 2018-05-03 11:22 | Emergency (ER) | payer OTHER ==
[~2018-05-03] VITALS: Ht 162.6 cm; Wt 79.4 kg
[~2018-05-03 11:22] MED LIST changes: -GABA800T2 PO; +GABA800T3 PO; +NAPR-514 PO; -NAPR500T3 PO
[2018-05-03 12:25] VITALS: BP 147/94
[2018-05-03 13:12] LABS: BILIRUBIN,URINE NEGATIVE (NEG); CLARITY,URINE CLEAR; COLOR,URINE YELLOW; NITRITE,URINE NEGATIVE (NEG); PH,URINE 6.5; PROTEIN,URINE NEGATIVE (NEG-TRACE); UROBILINOGEN,URINE 0.2 mg/dL (0.2 mg/dL)
[2018-05-03 13:19] LABS: SQUAMOUS EPITHELIAL CELL,UR MANY /LPF
[2018-05-03 13:20] LABS: BACTERIA,URINE MANY /HPF (0-FEW); RBC,URINE 0 /HPF (0-2); WBC,URINE >40 /HPF (0-4)
[2018-05-03] MEDS ORDERED: CIPR250T30 PO (13:30)
[2018-05-03] MEDS ORDERED: ONDA4TAB7 PO (13:30)
[2018-05-03] MEDS ORDERED: HYDR-2761 PO (13:30)
--- NOTE | 2018-05-03 13:30 | PHYS DOC ---
Past Medical History Past Medical History: Anxiety, Other Additional Past Medical Histor: lower back pain, "insomnia" Past Surgical History: No Surgical History Alcohol Use: None Drug Use: Benzodiazepine, Methamphetamine, Opiates Adult General Chief Complaint Chief Complaint: FLU SYMPTOM HPI HPI Patient is a 27 year old female with recent influenza exposure who presents with diffuse body aches, arthralgia, sore throat, nasal congestion, fatigue, and intermittent daily loose stools for the past 4 days. Patient son tested positive for influenza a 5 days ago. Patient reports nausea and vomiting past 2 days. No vomiting today. Does report decreased oral intake. No urinary frequency urgency. Denies shortness of breath, dizziness or dizziness. No reported rash, neck stiffness bloody diarrhea. No other acute symptoms or complaints [] Review of Systems Review of Systems Review symptoms as per history of present illness. All other review symptoms are negative. All other systems were reviewed and found to be within normal limits, except as documented in this note. Allergies Allergies Allergies Coded Allergies Type Severity Reaction Last Updated Verified No Known Drug Allergies 01/12/16 No Physical Exam Physical Exam Constitutional: Well developed, well nourished, uncomfortable, no acute distress.. [] HENT: Normocephalic, atraumatic, bilateral external ears normal, oropharynx moist, no oral exudates, nose normal. [] Eyes: PERRLA, EOMI, conjunctiva normal, no discharge. [] Neck: Normal range of motion, no tenderness, supple, no stridor. [] Cardiovascular:Heart rate regular rhythm, no murmur [] Lungs & Thorax: Bilateral breath sounds clear to auscultation. [] Abdomen: Bowel sounds normal, soft, no tenderness. [] Skin: Warm, dry, no erythema. [] Back: No tenderness. [] Extremities: No tenderness, no cyanosis, no clubbing, ROM intact, no edema. [] Neurologic: Alert and oriented X 3, normal motor function, normal sensory function, no focal deficits noted. [] Psychologic: Affect normal, judgement normal, mood normal. [] Current Patient Data Vital Signs Vital Signs Date Time Temp Pulse Resp B/P (MAP) Pulse Ox O2 Delivery O2 Flow Rate FiO2 05/03/18 12:25 97.9 85 18 147/94 (111) 98 Room Air 97.9 Lab Values Laboratory Tests Test 05/03/18 12:55 05/03/18 12:59 Urine Collection Type Unknown Urine Color Yellow Urine Clarity Clear Urine pH 6.5 Urine Specific [place] 1.015 Urine Protein Negative mg/dL (NEG-TRACE) Urine Glucose (UA) Negative mg/dL (NEG) Urine Ketones (Stick) Negative mg/dL (NEG) Urine Blood Negative (NEG) Urine Nitrite Negative (NEG) Urine Bilirubin Negative (NEG) Urine Urobilinogen Dipstick 0.2 mg/dL (0.2 mg/dL) Urine Leukocyte Esterase Moderate (NEG) Urine RBC 0 /HPF (0-2) Urine WBC >40 /HPF (0-4) Urine Squamous Epithelial Cells Many /LPF Urine Bacteria Many /HPF (0-FEW) POC Urine HCG, Qualitative Hcg negative (Negative) EKG EKG [] Radiology/Procedures Radiology/Procedures [] Course & Med Decision Making Course & Med Decision Making Pertinent Labs and Imaging studies reviewed. (See chart for details) [Flulike symptoms with evidence of urinary tract infection. HCG negative. Vital signs stable, patient afebrile. First dose metabolic skin in the emergency department. Abx and supportive care recommended. Dragon Disclaimer Dragon Disclaimer This electronic medical record was generated, in whole or in part, using a voice recognition dictation system. Departure Departure Impression: Primary Impression: Influenza-like illness Additional Impression: Urinary tract infection Disposition: 01 HOME, SELF-CARE Condition: Referrals: NO PCP (PCP) Patient Instructions: Urinary Tract Infection, Viral Syndrome Additional Instructions: Your evaluated emergency department for body aches and nausea with diarrhea. Symptoms are consistent with a flulike illness. Additionally, a urinalysis was performed and is diagnostic for urinary tract infection. Scripts Hydrocodone Bit/Acetaminophen (HYDROCODONE-APAP 5-325 ) 1 Tab Tablet 1 TAB PO PRN Q6HRS PRN for PAIN, #14 TAB 0 Refills Prov: JENNIFER ALLEN DO 05/03/18 Ondansetron Hcl (ZOFRAN) 4 Mg Tablet 1 TAB PO Q6HRS, #10 TAB 0 Refills Prov: JENNIFER ALLEN DO 05/03/18 Ciprofloxacin Hcl (CIPRO) 250 Mg Tablet 1 TAB PO BID, #14 TAB Prov: JENNIFER ALLEN DO 05/03/18 Problem Qualifiers JENNIFER ALLEN DO May 03, 2018 13:30
[2018-05-03] MEDS: CIPROFLOXACIN HCL 250 MG TABLET. PO ONE (13:44)
== END 2018-05-03 13:47 | disposition home or self-care (01) ==
LOC: ER 11:22
DX: J02.9 Acute pharyngitis, unspecified (principal); M79.18 Myalgia, other site; M25.50 Pain in unspecified joint; R53.83 Other fatigue; R09.81 Nasal congestion; R11.2 Nausea with vomiting, unspecified; N39.0 Urinary tract infection, site not specified; F41.9 Anxiety disorder, unspecified
CPT/HCPCS: 81001; 81025; 99283-25

== ENCOUNTER 2018-05-19 22:48 | Emergency (ER) | payer OTHER ==
[~2018-05-19] VITALS: Ht 160 cm; Wt 79.4 kg
[~2018-05-19 22:48] MED LIST changes: -GABA800T3 PO; +GABA800T5 PO; +HYDR-2761 PO; +ONDA4TAB7 PO
[2018-05-20] MEDS ORDERED: ACETAMINOPHEN 500 MG TABLET PO ONE
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
[2018-05-20 01:18] VITALS: BP 140/88
[2018-05-20] MEDS ORDERED: ONDANSETRON ODT 4 MG TAB.RAPDIS. PO ONE (02:00)
== END 2018-05-20 02:13 | disposition home or self-care (01) ==
LOC: ER 22:48
DX: S00.83XA Contusion of other part of head, initial encounter (principal); F10.129 Alcohol abuse with intoxication, unspecified; F41.9 Anxiety disorder, unspecified; Y90.9 Presence of alcohol in blood, level not specified; Y08.89XA Assault by other specified means, initial encounter; Y93.89 Activity, other specified; Y92.89 Other specified places as the place of occurrence of the external cause; Y99.8 Other external cause status
CPT/HCPCS: 70450; 70486; 81025; 99284; Q0162

== ENCOUNTER 2020-11-08 05:29 | Observation (INO) | payer OTHER ==
[~2020-11-08] VITALS: Ht 160 cm; Wt 90.9 kg
--- NOTE | 2020-11-08 05:52 | PHYS DOC ---
Past Medical History Past Medical History: Anxiety Additional Past Medical Histor: lower back pain, "insomnia" (OG BARBOSA DO) Past Surgical History: No Surgical History (OG BARBOSA DO) Smoking Status: Light Tobacco Smoker Alcohol Use: Occasionally Drug Use: None (OG BARBOSA DO) General Adult EDM: Problems: (1) Drug abuse (OG BARBOSA DO) HPI: HPI: 29-year-old female presents to the emergency department with suspected overdose in a suicide attempt via EMS. EMS reports that the patient took a handful of an unknown amount of pills in an attempt to end her life. Do not know which pills she took. There is also reported that the patient drank a copious amount of alcohol. The patient is unable to provide us with further history secondary to her clinical condition (OG BARBOSA DO) Review of Systems: Review of Systems: Further ROS is unobtainable secondary to patient's clinical condition (OG BARBOSA DO) Heart Score: C/O Chest Pain: No (OG BARBOSA DO) C/O Chest Pain: N/A (DESTINI PEREZ DO) Family History: Family History: Unknown (OG BARBOSA DO) Current Medications: My Orders - OG BARBOSA DO Procedure Category Date Status Time Vital Signs Monitoring ER 11/08/20 Transmitted 05:31 Blood Pressure ER 11/08/20 Transmitted Monitoring 05:31 Cardiac Monitoring ER 11/08/20 Transmitted 05:31 Continuous Pulse Ox ER 11/08/20 Transmitted 05:31 Ethanol LAB 11/08/20 In Process 05:31 Drugs Of Abuse Ur LAB 11/08/20 Logged 05:31 Ua, Cult If Indicated LAB 11/08/20 Logged 05:31 Comprehensive LAB 11/08/20 In Process Metabolic Panel 05:31 Urine Test ROBERT 11/08/20 In Process 05:31 Acetaminophen LAB 11/08/20 In Process 05:31 Salicylate LAB 11/08/20 In Process 05:31 12 Lead Ekg EKG 11/08/20 Logged 05:31 Blood Glucose ROBERT 11/08/20 In Process Monitoring Only 05:31 Ct [address] 11/08/20 Logged Spine Wo 05:[address] Ct [address] 11/08/20 Logged Contrast 05:42 Chest Ap Only RAD 11/08/20 Logged 05:42 (OG BARBOSA DO) Allergies: Allergies: Allergies Coded Allergies Type Severity Reaction Last Updated Verified No Known Drug Allergies 01/12/16 No (OG BARBOSA DO) Physical Exam: PE: Constitutional: Obtunded. HENT: Peiriorbital ecchymoses, bilateral external ears normal, nose normal. pro tecting airway Eyes: PERRLA conjunctiva normal, no discharge. Neck: Normal range of motion, supple, no stridor. Cardiovascular: Heart rate regular rhythm. 2+ radial pulses Lungs & Thorax: No respiratory distress, symmetrical expansion. Bilateral breath sounds clear to auscultation Abdomen: Soft, no tenderness Skin: Warm, dry. scattered bruising. Extremities: No tenderness, no cyanosis, ROM intact, no edema. Neurologic: Obtunded, responds to pain (OG BARBOSA DO) Current Patient Data: Labs: Laboratory Tests Test 11/08/20 05:39 11/08/20 05:43 11/08/20 06:14 11/08/20 06:19 Glucose (Fingerstick) 113 mg/dL (70-99) White Blood Count 4.8 x10^3/uL (4.0-11.0) Red Blood Count 3.98 x10^6/uL (3.50-5.40) Hemoglobin 12.5 g/dL (12.0-15.5) Hematocrit 36.2 % (36.0-47.0) Mean Corpuscular Volume 91 fL (79-100) Mean Corpuscular Hemoglobin 31 pg (25-35) Mean Corpuscular Hemoglobin Concent 35 g/dL (31-37) Red Cell Distribution Width 14.5 % (11.5-14.5) Platelet Count 217 x10^3/uL (140-400) Neutrophils (%) (Auto) 60 % (31-73) Lymphocytes (%) (Auto) 30 % (24-48) Monocytes (%) (Auto) 6 % (0-9) Eosinophils (%) (Auto) 3 % (0-3) Basophils (%) (Auto) 1 % (0-3) Neutrophils # (Auto) 2.9 x10^3/uL (1.8-7.7) Lymphocytes # (Auto) 1.5 x10^3/uL (1.0-4.8) Monocytes # (Auto) 0.3 x10^3/uL (0.0-1.1) Eosinophils # (Auto) 0.2 x10^3/uL (0.0-0.7) Basophils # (Auto) 0.0 x10^3/uL (0.0-0.2) Sodium Level 142 mmol/L (136-145) Potassium Level 3.5 mmol/L (3.5-5.1) Chloride Level 104 mmol/L (98-107) Carbon Dioxide Level 27 mmol/L (21-32) Anion Gap 11 (6-14) Blood Urea Nitrogen 6 mg/dL (7-20) Creatinine 0.8 mg/dL (0.6-1.0) Estimated GFR (Cockcroft-Gault) 84.2 BUN/Creatinine Ratio 8 (6-20) Glucose Level 122 mg/dL (70-99) Calcium Level 8.4 mg/dL (8.5-10.1) Magnesium Level 2.3 mg/dL (1.8-2.4) Total Bilirubin 0.2 mg/dL (0.2-1.0) Aspartate Amino Transf (AST/SGOT) 14 U/L (15-37) Alanine Aminotransferase (ALT/SGPT) 19 U/L (14-59) Alkaline Phosphatase 114 U/L (46-116) Troponin I Quantitative < 0.017 ng/mL (0.000-0.055) Total Protein 7.0 g/dL (6.4-8.2) Albumin 3.5 g/dL (3.4-5.0) Albumin/Globulin Ratio 1.0 (1.0-1.7) Thyroid Stimulating Hormone (TSH) 1.004 uIU/mL (0.358-3.74) Salicylates Level 3.1 mg/dL (2.8-20.0) Salicylate Last Dose Date Unknown Salicylate Last Dose Time Unknown Acetaminophen Level < 2 mcg/ml (10-30) Acetaminophen Last Dose Date Unknown Acetaminophen Last Dose Time Unknown Ethyl Alcohol Level 237 mg/dL (0-10) Urine Collection Type U cath Urine Color Yellow Urine Clarity Clear Urine pH 7.0 (<5.0-8.0) Urine Specific [place] <=1.005 (1.000-1.030) Urine Protein Negative mg/dL (NEG-TRACE) Urine Glucose (UA) Negative mg/dL (NEG) Urine Ketones (Stick) Negative mg/dL (NEG) Urine Blood Negative (NEG) Urine Nitrite Negative (NEG) Urine Bilirubin Negative (NEG) Urine Urobilinogen Dipstick 0.2 mg/dL (0.2 mg/dL) Urine Leukocyte Esterase Negative (NEG) Urine RBC 0 /HPF (0-2) Urine WBC 0 /HPF (0-4) Urine Squamous Epithelial Cells Mod /LPF Urine Bacteria 0 /HPF (0-FEW) Urine Opiates Screen Neg (NEG) Urine Methadone Screen Neg (NEG) Urine Barbiturates Neg (NEG) Urine Phencyclidine Screen Neg (NEG) Urine Amphetamine/Methamphetamine Neg (NEG) Urine Benzodiazepines Screen Neg (NEG) Urine Cocaine Screen Neg (NEG) Urine Cannabinoids Screen Neg (NEG) Urine Ethyl Alcohol Pos (NEG) Bedside Urine HCG, Qualitative Hcg negative (Negative) Vital Signs: Vital Signs Date Time Temp Pulse Resp B/P (MAP) Pulse Ox O2 Delivery O2 Flow Rate FiO2 11/08/20 17:17 78 159/70 (99) 99 Room Air 11/08/20 16:47 100 140/62 (88) 98 Room Air 11/08/20 14:54 88 16 111/66 (81) 100 Nasal Cannula 2.0 11/08/20 13:54 80 11 102/72 (82) 96 Nasal Cannula 2.0 11/08/20 12:54 12 100/65 (77) 96 Nasal Cannula 2.0 11/08/20 11:54 90 13 97/58 (71) 96 Nasal Cannula 2.0 11/08/20 10:54 86 13 95/53 (67) 93 Nasal Cannula 2.0 11/08/20 09:54 86 17 91/52 (65) 92 Nasal Cannula 2.0 11/08/20 08:54 84 13 96/53 (67) 95 Nasal Cannula 2.0 11/08/20 07:54 86 14 105/68 (80) 92 Nasal Cannula 2.0 11/08/20 07:39 82 14 104/64 (77) 97 Room Air 11/08/20 07:24 86 13 101/59 (73) 96 Room Air 11/08/20 07:09 88 13 100/57 (71) 96 Room Air 11/08/20 06:54 90 13 95/54 (68) 95 Room Air 11/08/20 06:39 90 14 89/55 (66) 95 Room Air 11/08/20 06:24 88 14 94/55 (68) 94 Room Air 11/08/20 06:09 90 13 106/58 (74) 95 Room Air 11/08/20 06:05 95 14 106/59 (75) 95 Room Air 11/08/20 05:30 96.8 99 15 118/62 (105) 96 Room Air 96.8 (OG BARBOSA DO) EKG: EKG: Sinus tachycardia rate of 103, no ST-T wave changes, no ectopic beats, QTC 505 impression: Normal EKG. interpreted by Og garcia D.O. (OG BARBOSA DO) Radiology/Procedures: Radiology/Procedures: [facility] [address] [place] [address] IMAGING REPORT Signed PATIENT: RHIANNA CONRAD ACCOUNT: [id number] : 1990 LOCATION: ER AGE: 29 SEX: F EXAM STATUS: PRE ER ORD. PHYSICIAN: OG BARBOSA DO REASON: periorbital ecchymoses PROCEDURE: CT HEAD AND CERVICAL SPINE WO STUDY: 1. CT head without contrast 2. CT maxillofacial without contrast 3. CT cervical spine without contrast INDICATION: Periorbital ecchymoses. COMPARISON: CT head/max face 05/19/2018 TECHNIQUE: Axial CT imaging of the head, maxillofacial structures and cervical spine performed without the use of intravenous contrast. Sagittal and coronal reformats were obtained. One or more of the following individualized dose reduction techniques were utilized for this examination: 1. Automated exposure control 2. Adjustment of the mA and/or kV according to patient size 3. Use of iterative reconstruction technique. FINDINGS: CT HEAD: No acute intracranial hemorrhage. No mass effect, midline shift or hydrocephalus. Hoffman-white matter differentiation is maintained. Intact calvarium. There is the suggestion of mild right frontal scalp contusion such as on image [address] MAXILLOFACIAL: Mild nasal bone complex deformity with minimal offset by less than 2 mm along its left aspect as seen on image 41 series 3. This is new from the 2018 comparison. No additional facial bone deformity. Symmetric globes. No retrobulbar hematoma. CT CERVICAL SPINE: Degraded study below C4 due to patient body habitus. No displaced fracture or traumatic malalignment. No significant osseous central canal or neural foraminal stenosis. Reversal of cervical lordosis centered at C5 is favored mostly positional. No soft tissue sequela of trauma. IMPRESSION: CT HEAD: 1. No acute intracranial abnormality by CT. Probable mild right frontal scalp contusion. CT MAXILLOFACIAL: 1. Mild nasal bone complex deformity with under 2 mm of offset on the left. This is new from 2019 and may be acute. Correlate with direct inspection. No additional facial bone fracture. Unremarkable orbits. CT CERVICAL SPINE: 1. No acute fracture or traumatic malalignment. Electronically signed by: DELIA ONTIVEROS MD (11/08/2020 6:27 AM) [facility] DICTATED and SIGNED BY: DELIA ONTIVEROS MD DATE: 11/08/20 [id number] [facility] [address] [place] [address] IMAGING REPORT Signed PATIENT: RHIANNA CONRAD ACCOUNT: [id number] : 1990 LOCATION: ER AGE: 29 SEX: F EXAM STATUS: REG ER ORD. PHYSICIAN: OG BARBOSA DO REASON: ecchymoses PROCEDURE: CHEST AP ONLY Study: XR CHEST 1V Indication: ECMO series. Comparison: None. Findings: The cardiomediastinal silhouette appears prominent in size but this is favored mostly from low lung volumes and AP technique. No confluent airspace infiltrate, pleural effusion or pneumothorax. Mild asymmetric elevation of the right hemidiaphragm. There is likely a component of mild basilar volume loss. Impression: Limited study due to low lung volumes. Taking this into consideration, no acute abnormality. Electronically signed by: DELIA ONTIVEROS MD (11/08/2020 6:49 AM) [facility] DICTATED and SIGNED BY: DELIA ONTIVEROS MD DATE: 11/08/20 [id number] (DESTINI PEREZ DO) Course & Med Decision Making: Course & Med Decision Making OANH to Dr. Perez at 0600 pending workup, likely admit for SI with overdose (OG BARBOSA DO) Course & Med Decision Making Patient is a 29-year-old female who was brought here by EMS from home after a suicidal attempt. Patient had multiple prescribing bottles of medication with her, patient also was drinking alcohol today. Not sure what medication she took. Initially patient was awake alert but EMS but by the time she got here patient was unresponsive to verbal command. Patient is only responsive to painful stimuli. Patient was able to protect her airway and maintaining her oxygen saturation. Patient will be admitted to ICU. Discussed with Dr. Ruiz the hospitalist on-call who agreed to admit the patient (DESTINI PEREZ DO) Departure Departure Impression: Primary Impression: Suicide attempt by multiple drug overdose Additional Impression: Alcohol intoxication Disposition: ADMITTED INPATIENT Admitting Physician: JANENES (Dr. Ruiz) (DESTINI PEREZ DO) Condition: STABLE Referrals: NO PCP (PCP) OG BARBOSA DO Nov 08, 2020 05:51 DESTINI PEREZ DO Nov 08, 2020 07:09
[2020-11-08 06:01] LABS: CALCIUM 8.4 mg/dL (8.5-10.1); CREATININE 0.8 mg/dL (0.6-1.0); GFR 84.2; POTASSIUM 3.5 mmol/L (3.5-5.1)
[2020-11-08 06:06] LABS: ACETAMIN < 2 mcg/ml (10-30); ETHANOL 237 mg/dL (0-10); SALIC 3.1 mg/dL (2.8-20.0)
[2020-11-08 06:07] LABS: ALBUMIN 3.5 g/dL (3.4-5.0); TOTAL BILIRUBIN 0.2 mg/dL (0.2-1.0)
[2020-11-08 06:19] LABS: BASO % 1 % (0-3); EOS # 0.2 x10^3/uL (0.0-0.7); EOS % 3 % (0-3); HEMATOCRIT 36.2 % (36.0-47.0); HEMOGLOBIN 12.5 g/dL (12.0-15.5); LYMPH # 1.5 x10^3/uL (1.0-4.8); LYMPH % 30 % (24-48); MEAN CORPUSCULAR HEMOGLOBIN 31 pg (25-35); MEAN CORPUSCULAR HGB CONC 35 g/dL (31-37); MEAN CORPUSCULAR VOLUME 91 fL (79-100); MONO # 0.3 x10^3/uL (0.0-1.1); MONO % 6 % (0-9); NEUT # 2.9 x10^3/uL (1.8-7.7); NEUT % 60 % (31-73); PLATELET COUNT 217 x10^3/uL (140-400); RED BLOOD COUNT 3.98 x10^6/uL (3.50-5.40); RED CELL DISTRIBUTION WIDTH 14.5 % (11.5-14.5); WHITE BLOOD COUNT 4.8 x10^3/uL (4.0-11.0)
[2020-11-08 06:25] LABS: BILIRUBIN,URINE NEGATIVE (NEG); CLARITY,URINE CLEAR; COLOR,URINE YELLOW; NITRITE,URINE NEGATIVE (NEG); PROTEIN,URINE NEGATIVE (NEG-TRACE); UROBILINOGEN,URINE 0.2 mg/dL (0.2 mg/dL)
--- NOTE | 2020-11-08 06:29 | RAD ---
STUDY: 1. CT head without contrast 2. CT maxillofacial without contrast 3. CT cervical spine without contrast INDICATION: Periorbital ecchymoses. COMPARISON: CT head/max face 05/19/2018 TECHNIQUE: Axial CT imaging of the head, maxillofacial structures and cervical spine performed withou t the use of intravenous contrast. Sagittal and coronal reformats were obtained. One or more of the following individualized dose reduction techniques were utilized for this examinat ion: 1. Automated exposure control 2. Adjustment of the mA and/or kV according to patient size 3. Use of iterative reconstruction technique. FINDINGS: CT HEAD: No acute intracranial hemorrhage. No mass effect, midline shift or hydrocephalus. Hoffman-white matter d ifferentiation is maintained. Intact calvarium. There is the suggestion of mild right frontal scalp contusion such as on image [address] MAXILLOFACIAL: Mild nasal bone complex deformity with minimal offset by less than 2 mm along its left aspect as seen on image 41 series 3. This is new from the 2019 comparison. No additional facial bone deformity. Sym metric globes. No retrobulbar hematoma. CT CERVICAL SPINE: Degraded study below C4 due to patient body habitus. No displaced fracture or traumatic malalignment. No significant osseous central canal or neural ryan inal stenosis. Reversal of cervical lordosis centered at C5 is favored mostly positional. No soft tissue sequela of trauma. IMPRESSION: CT HEAD: 1. No acute intracranial abnormality by CT. Probable mild right frontal scalp contusion. CT MAXILLOFACIAL: 1. Mild nasal bone complex deformity with under 2 mm of offset on the left. This is new from 2019 an d may be acute. Correlate with direct inspection. No additional facial bone fracture. Unremarkable or bits. CT CERVICAL SPINE: 1. No acute fracture or traumatic malalignment. Electronically signed by: DELIA ONTIVEROS MD (11/08/2020 6:27 AM) [facility]
[2020-11-08 06:32] LABS: BARBITURATES NEG (NEG); BENZODIAZEPINES NEG (NEG); CANNABINOIDS NEG (NEG); COCAINE NEG (NEG); METHADONE NEG (NEG); OPIATES NEG (NEG); PHENCYCLIDINE NEG (NEG)
[2020-11-08 06:33] LABS: AMPHETAMINE/METHAMPHETAMINE NEG (NEG)
[2020-11-08 06:38] LABS: BACTERIA,URINE 0 /HPF (0-FEW); RBC,URINE 0 /HPF (0-2); WBC,URINE 0 /HPF (0-4)
[2020-11-08] MEDS ORDERED: IV NORMAL SALINE 1000ML BAG 1,000 ML IV ONE ×2 (06:45→08:00)
--- NOTE | 2020-11-08 06:51 | EKG ---
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
--- NOTE | 2020-11-08 06:52 | RAD ---
Study: XR CHEST 1V Indication: ECMO series. Comparison: None. Findings: The cardiomediastinal silhouette appears prominent in size but this is favored mostly from low lung v olumes and AP technique. No confluent airspace infiltrate, pleural effusion or pneumothorax. Mild asy mmetric elevation of the right hemidiaphragm. There is likely a component of mild basilar volume loss . Impression: Limited study due to low lung volumes. Taking this into consideration, no acute abnormality. Electronically signed by: DELIA ONTIVEROS MD (11/08/2020 6:49 AM) [facility]
[2020-11-08] MEDS ORDERED: ONDANSETRON PF 4 MG/2 ML VIAL. IVP PRN ×2 (08:00→10:30)
[2020-11-08] MEDS: IV NORMAL SALINE 1000ML BAG 1,000 ML IV SCH ×2 (09:25→22:31)
--- NOTE | 2020-11-08 09:49 | PDOC1 ---
History and Physical Date of Admission Date of Admission DATE: 11/08/20 TIME: 09:47 Identification/Chief Complaint Chief Complaint overdose of meds, alcohol abuse History of Present Illness History of Present Illness 29-year-old female presented to the emergency department with suspected overdose in a suicide attempt via EMS. patient took a handful of an unknown amount of pills in an attempt to end her life. EMS also reported that the patient drank unknown amount of alcohol. ETOH HERE WAS 237 admitted with suicide attempt by multiple drug overdose impression Acute alcohol intoxication Altered mental status Intentional overdose of multiple Meds ie, suicide attempt by multiple drug overdose hx polysubstance abuse including meth, THC acute metabolic encephalopathy, toxic, anxiety h/o long standing / Fall / MORBID OBESITY No acute intracranial abnormality by CT. Probable mild right frontal scalp contusion. Mild nasal bone complex deformity with under 2 mm of offset on the left. new from 2019 NEEDS ICU BED PLAN suicide precautions // IV FLUID SUPPORT // Neurochecks q hr dvt prophylaxis gi prophylaxis d/w er dr and dr babin in icu 10:24 Past Medical History Past Medical History Past Medical History Past Medical History: Anxiety Additional Past Medical Histor: lower back pain, "insomnia" Past Surgical History: No Surgical History Smoking Status: Light Tobacco Smoker Alcohol Use: Occasionally Drug Use: None FHX OBESITY Cardiovascular: No pertinent hx Pulmonary: No pertinent hx GI: No pertinent hx Heme/Onc: No pertinent hx Hepatobiliary: No pertinent hx Psych: Anxiety, Addictions Rheumatologic: No pertinent hx Family History Family History obesity Family History: No Significant Social History Smoke: <1 pack per day ALCOHOL: heavy Drugs: Marijuana, Crystal meth Current Problem List Problem List Problems Medical Problems: (1) Alcohol intoxication Status: Acute (2) Suicide attempt by multiple drug overdose Status: Acute Current Medications Current Medications Current Medications Sodium Chloride 1,000 ml @ 1,000 mls/hr 1X ONCE IV Last administered on 11/08/20at 06:45; Start 11/08/20 at 06:45; Stop 11/08/20 at 07:44; Status DC Sodium Chloride 1,000 ml @ 1,000 mls/hr 1X ONCE IV Last administered on 11/08/20at 07:53; Start 11/08/20 at 08:00; Stop 11/08/20 at 08:59; Status DC Ondansetron HCl (Zofran) 4 mg PRN Q8HRS PRN IVP NAUSEA/VOMITING; Start 11/08/20 at 08:00; Stop 11/09/20 at 07:59 Sodium Chloride 1,000 ml @ 100 mls/hr Q10H IV Last administered on 11/08/20at 09:25; Start 11/08/20 at 09:00; Stop 11/09/20 at 08:59 Active Scripts Active Hydrocodone-Apap 5-325 (Hydrocodone Bit/Acetaminophen) 1 Tab Tablet 1 Tab PO PRN Q6HRS PRN Zofran (Ondansetron Hcl) 4 Mg Tablet 1 Tab PO Q6HRS Cipro (Ciprofloxacin Hcl) 250 Mg Tablet 1 Tab PO BID Amoxicillin 250 Mg Capsule 500 Mg PO [id number] 5 Days Reported Buspirone Hcl 15 Mg Tablet 1 Tab PO BID Xanax (Alprazolam) 0.5 Mg Tablet 1 Tab PO BID Naproxen 500 Mg Tablet 1 Tab PO BID Cyclobenzaprine Hcl 10 Mg Tablet 1 Tab PO TID Gabapentin 800 Mg Tablet 800 Mg PO TID Allergies Allergies: Coded Allergies: No Known Drug Allergies (Unverified , 01/12/16) ROS Review of System unable to review due to AMS Physical Exam Physical Exam Constitutional: Obtunded. UNABLE TO AWAKEN ON MY EXAM HENT: Peiriorbital ecchymoses, bilateral external ears normal, nose normal. protecting airway Eyes: PERRLA conjunctiva normal, no discharge. Neck: Normal range of motion, supple, no stridor. Cardiovascular: Heart rate regular rhythm. 2+ radial pulses Lungs & Thorax: No respiratory distress, symmetrical expansion. Bilateral breath sounds clear to auscultation Abdomen: Soft, no tenderness, OBESE Skin: Warm, dry. scattered bruising. Extremities: No tenderness, no cyanosis, ROM intact, no edema. Neurologic: Obtunded, responds to pain General: No acute distress Breasts: Not examined Abdomen: Normal bowel sounds, Soft Rectal Exam: not examined PELVIC: Examination not indicated Extremities: No clubbing, No cyanosis, No edema Skin: No breakdown Neuro: Cranial nerves 3-12 NL Vitals Vitals Vital Signs Date Time Temp Pulse Resp B/P (MAP) Pulse Ox O2 Delivery O2 Flow Rate FiO2 11/08/20 07:39 82 14 104/64 (77) 97 Room Air 11/08/20 05:30 96.8 96.8 Labs Labs Laboratory Tests Test 11/08/20 05:39 11/08/20 05:43 11/08/20 06:14 11/08/20 06:19 Glucose (Fingerstick) 113 mg/dL (70-99) White Blood Count 4.8 x10^3/uL (4.0-11.0) Red Blood Count 3.98 x10^6/uL (3.50-5.40) Hemoglobin 12.5 g/dL (12.0-15.5) Hematocrit 36.2 % (36.0-47.0) Mean Corpuscular Volume 91 fL (79-100) Mean Corpuscular Hemoglobin 31 pg (25-35) Mean Corpuscular Hemoglobin Concent 35 g/dL (31-37) Red Cell Distribution Width 14.5 % (11.5-14.5) Platelet Count 217 x10^3/uL (140-400) Neutrophils (%) (Auto) 60 % (31-73) Lymphocytes (%) (Auto) 30 % (24-48) Monocytes (%) (Auto) 6 % (0-9) Eosinophils (%) (Auto) 3 % (0-3) Basophils (%) (Auto) 1 % (0-3) Neutrophils # (Auto) 2.9 x10^3/uL (1.8-7.7) Lymphocytes # (Auto) 1.5 x10^3/uL (1.0-4.8) Monocytes # (Auto) 0.3 x10^3/uL (0.0-1.1) Eosinophils # (Auto) 0.2 x10^3/uL (0.0-0.7) Basophils # (Auto) 0.0 x10^3/uL (0.0-0.2) Sodium Level 142 mmol/L (136-145) Potassium Level 3.5 mmol/L (3.5-5.1) Chloride Level 104 mmol/L (98-107) Carbon Dioxide Level 27 mmol/L (21-32) Anion Gap 11 (6-14) Blood Urea Nitrogen 6 mg/dL (7-20) Creatinine 0.8 mg/dL (0.6-1.0) Estimated GFR (Cockcroft-Gault) 84.2 BUN/Creatinine Ratio 8 (6-20) Glucose Level 122 mg/dL (70-99) Calcium Level 8.4 mg/dL (8.5-10.1) Magnesium Level 2.3 mg/dL (1.8-2.4) Total Bilirubin 0.2 mg/dL (0.2-1.0) Aspartate Amino Transf (AST/SGOT) 14 U/L (15-37) Alanine Aminotransferase (ALT/SGPT) 19 U/L (14-59) Alkaline Phosphatase 114 U/L (46-116) Total Protein 7.0 g/dL (6.4-8.2) Albumin 3.5 g/dL (3.4-5.0) Albumin/Globulin Ratio 1.0 (1.0-1.7) Salicylates Level 3.1 mg/dL (2.8-20.0) Salicylate Last Dose Date Unknown Salicylate Last Dose Time Unknown Acetaminophen Level < 2 mcg/ml (10-30) Acetaminophen Last Dose Date Unknown Acetaminophen Last Dose Time Unknown Ethyl Alcohol Level 237 mg/dL (0-10) Urine Collection Type U cath Urine Color Yellow Urine Clarity Clear Urine pH 7.0 (<5.0-8.0) Urine Specific Wilmot <=1.005 (1.000-1.030) Urine Protein Negative mg/dL (NEG-TRACE) Urine Glucose (UA) Negative mg/dL (NEG) Urine Ketones (Stick) Negative mg/dL (NEG) Urine Blood Negative (NEG) Urine Nitrite Negative (NEG) Urine Bilirubin Negative (NEG) Urine Urobilinogen Dipstick 0.2 mg/dL (0.2 mg/dL) Urine Leukocyte Esterase Negative (NEG) Urine RBC 0 /HPF (0-2) Urine WBC 0 /HPF (0-4) Urine Squamous Epithelial Cells Mod /LPF Urine Bacteria 0 /HPF (0-FEW) Urine Opiates Screen Neg (NEG) Urine Methadone Screen Neg (NEG) Urine Barbiturates Neg (NEG) Urine Phencyclidine Screen Neg (NEG) Urine Amphetamine/Methamphetamine Neg (NEG) Urine Benzodiazepines Screen Neg (NEG) Urine Cocaine Screen Neg (NEG) Urine Cannabinoids Screen Neg (NEG) Urine Ethyl Alcohol Pos (NEG) Bedside Urine HCG, Qualitative Hcg negative (Negative) Laboratory Tests Test 11/08/20 05:39 11/08/20 05:43 11/08/20 06:14 11/08/20 06:19 Glucose (Fingerstick) 113 mg/dL (70-99) White Blood Count 4.8 x10^3/uL (4.0-11.0) Red Blood Count 3.98 x10^6/uL (3.50-5.40) Hemoglobin 12.5 g/dL (12.0-15.5) Hematocrit 36.2 % (36.0-47.0) Mean Corpuscular Volume 91 fL (79-100) Mean Corpuscular Hemoglobin 31 pg (25-35) Mean Corpuscular Hemoglobin Concent 35 g/dL (31-37) Red Cell Distribution Width 14.5 % (11.5-14.5) Platelet Count 217 x10^3/uL (140-400) Neutrophils (%) (Auto) 60 % (31-73) Lymphocytes (%) (Auto) 30 % (24-48) Monocytes (%) (Auto) 6 % (0-9) Eosinophils (%) (Auto) 3 % (0-3) Basophils (%) (Auto) 1 % (0-3) Neutrophils # (Auto) 2.9 x10^3/uL (1.8-7.7) Lymphocytes # (Auto) 1.5 x10^3/uL (1.0-4.8) Monocytes # (Auto) 0.3 x10^3/uL (0.0-1.1) Eosinophils # (Auto) 0.2 x10^3/uL (0.0-0.7) Basophils # (Auto) 0.0 x10^3/uL (0.0-0.2) Sodium Level 142 mmol/L (136-145) Potassium Level 3.5 mmol/L (3.5-5.1) Chloride Level 104 mmol/L (98-107) Carbon Dioxide Level 27 mmol/L (21-32) Anion Gap 11 (6-14) Blood Urea Nitrogen 6 mg/dL (7-20) Creatinine 0.8 mg/dL (0.6-1.0) Estimated GFR (Cockcroft-Gault) 84.2 BUN/Creatinine Ratio 8 (6-20) Glucose Level 122 mg/dL (70-99) Calcium Level 8.4 mg/dL (8.5-10.1) Magnesium Level 2.3 mg/dL (1.8-2.4) Total Bilirubin 0.2 mg/dL (0.2-1.0) Aspartate Amino Transf (AST/SGOT) 14 U/L (15-37) Alanine Aminotransferase (ALT/SGPT) 19 U/L (14-59) Alkaline Phosphatase 114 U/L (46-116) Total Protein 7.0 g/dL (6.4-8.2) Albumin 3.5 g/dL (3.4-5.0) Albumin/Globulin Ratio 1.0 (1.0-1.7) Salicylates Level 3.1 mg/dL (2.8-20.0) Salicylate Last Dose Date Unknown Salicylate Last Dose Time Unknown Acetaminophen Level < 2 mcg/ml (10-30) Acetaminophen Last Dose Date Unknown Acetaminophen Last Dose Time Unknown Ethyl Alcohol Level 237 mg/dL (0-10) Urine Collection Type U cath Urine Color Yellow Urine Clarity Clear Urine pH 7.0 (<5.0-8.0) Urine Specific Wilmot <=1.005 (1.000-1.030) Urine Protein Negative mg/dL (NEG-TRACE) Urine Glucose (UA) Negative mg/dL (NEG) Urine Ketones (Stick) Negative mg/dL (NEG) Urine Blood Negative (NEG) Urine Nitrite Negative (NEG) Urine Bilirubin Negative (NEG) Urine Urobilinogen Dipstick 0.2 mg/dL (0.2 mg/dL) Urine Leukocyte Esterase Negative (NEG) Urine RBC 0 /HPF (0-2) Urine WBC 0 /HPF (0-4) Urine Squamous Epithelial Cells Mod /LPF Urine Bacteria 0 /HPF (0-FEW) Urine Opiates Screen Neg (NEG) Urine Methadone Screen Neg (NEG) Urine Barbiturates Neg (NEG) Urine Phencyclidine Screen Neg (NEG) Urine Amphetamine/Methamphetamine Neg (NEG) Urine Benzodiazepines Screen Neg (NEG) Urine Cocaine Screen Neg (NEG) Urine Cannabinoids Screen Neg (NEG) Urine Ethyl Alcohol Pos (NEG) Bedside Urine HCG, Qualitative Hcg negative (Negative) Images Images Study: XR CHEST 1V Indication: ECMO series. Comparison: None. Findings: The cardiomediastinal silhouette appears prominent in size but this is favored mostly from low lung volumes and AP technique. No confluent airspace infiltrate, pleural effusion or pneumothorax. Mild asymmetric elevation of the right hemidiaphragm. There is likely a component of mild basilar volume loss. Impression: Limited study due to low lung volumes. Taking this into consideration, no acute abnormality. Electronically signed by: DELIA ONTIVEROS MD (11/08/2020 6:49 AM) [facility] DICTATED and SIGNED BY: DELIA ONTIVEROS MD DATE: 11/08/20 [id number] STUDY: 1. CT head without contrast 2. CT maxillofacial without contrast 3. CT cervical spine without contrast INDICATION: Periorbital ecchymoses. COMPARISON: CT head/max face 05/19/2018 TECHNIQUE: Axial CT imaging of the head, maxillofacial structures and cervical spine performed without the use of intravenous contrast. Sagittal and coronal reformats were obtained. One or more of the following individualized dose reduction techniques were utilized for this examination: 1. Automated exposure control 2. Adjustment of the mA and/or kV according to patient size 3. Use of iterative reconstruction technique. FINDINGS: CT HEAD: No acute intracranial hemorrhage. No mass effect, midline shift or hydro cephalus. Hoffman-white matter differentiation is maintained. Intact calvarium. There is the suggestion of mild right frontal scalp contusion such as on image [address] MAXILLOFACIAL: Mild nasal bone complex deformity with minimal offset by less than 2 mm along its left aspect as seen on image 41 series 3. This is new from the 2019 comparison. No additional facial bone deformity. Symmetric globes. No retrobulbar hematoma. CT CERVICAL SPINE: Degraded study below C4 due to patient body habitus. No displaced fracture or traumatic malalignment. No significant osseous central canal or neural foraminal stenosis. Reversal of cervical lordosis centered at C5 is favored mostly positional. No soft tissue sequela of trauma. IMPRESSION: CT HEAD: 1. No acute intracranial abnormality by CT. Probable mild right frontal scalp contusion. CT MAXILLOFACIAL: 1. Mild nasal bone complex deformity with under 2 mm of offset on the left. This is new from 2019 and may be acute. Correlate with direct inspection. No additional facial bone fracture. Unremarkable orbits. CT CERVICAL SPINE: 1. No acute fracture or traumatic malalignment. Electronically signed by: DELIA ONTIVEROS MD (11/08/2020 6:27 AM) [facility] DICTATED and SIGNED BY: DELIA ONTIVEROS MD DATE: 11/08/20 [id number] VTE Prophylaxis Ordered VTE Prophylaxis Devices: No VTE Pharmacological Prophylaxi: No Assessment/Plan Assessment/Plan IMPRESSION: Acute alcohol intoxication Altered mental status Intentional overdose of multiple Meds ie, suicide attempt by multiple drug overdose polysubstance abuse including meth, THC encephalopathy, toxic, anxiety h/o long standing Fall mORBID OBESITY No acute intracranial abnormality by CT. Probable mild right frontal scalp contusion. Mild nasal bone complex deformity with under 2 mm of offset on the left. new from 2018 may be acute plan== Admit ICU bed suicide precautions IV FLUID SUPPORT Neurochecks q hr dvt prophylaxis gi prophylaxis PULM consult 40 min cc time Justifications for Admission Other Justification HAILY LICONA MD Nov 08, 2020 09:49
[2020-11-08] MEDS ORDERED: 0.9 % SODIUM CHLORIDE 10 ML DISP.SYRIN. IV PRN (10:30)
[2020-11-08] MEDS ORDERED: MAG HYDROX/ALUMINUM HYD/SIMETH 30 ML ORAL.SUSP PO PRN (10:30)
[2020-11-08] MEDS ORDERED: ACETAMINOPHEN 325 MG TABLET. PO PRN (10:30)
[2020-11-08] MEDS ORDERED: BISACODYL 10 MG SUPP.RECT. PR PRN (10:30)
[2020-11-08] MEDS: FAMOTIDINE 20 MG/2 ML VIAL IVP SCH ×2 (11:08→22:31)
[2020-11-08] MEDS ORDERED: IPRATRPIUM/ALBUTEROL 0.5/2.5MG 3 ML NEBU. NEB SCH (12:00)
[2020-11-08] MEDS ORDERED: IPRATRPIUM/ALBUTEROL 0.5/2.5MG 3 ML NEBU. NEB PRN (12:00)
[2020-11-08] MEDS: HEPARIN for SUB-Q USE 5,000 UNIT/ML VIAL. SQ SCH ×2 (14:32→22:32)
[2020-11-09 01:30] VITALS: BP 145/98
--- NOTE | 2020-11-09 01:39 | NUR ---
Pt, Melva Erickson, received from ED, per cart, her belongings were in her possession, the patient is informed that she cannot have any of her belongings, plan of care discussed, patient reported to have taken trazadone (3/4th of bottle), and clonazepam (bottle empty-she thinks she took 30 or so). alcohol reported 1 pint of 'Fireball'. she denies to feel suicidal 'at all' now, states she was suicidal due to the alcohol she had Monday. Is currently eating a box lunch without difficulty.
[2020-11-09] MEDS ORDERED: TRAZ-123 PO (02:14)
[2020-11-09] MEDS ORDERED: CLONAZEPAM1 MG PO (02:14)
[2020-11-09 03:00] VITALS: BP 115/76
[2020-11-09] MEDS: HEPARIN for SUB-Q USE 5,000 UNIT/ML VIAL. SQ SCH ×2 (06:00→14:27)
[2020-11-09 07:00] VITALS: BP 148/107
[2020-11-09 08:14] LABS: BASO % 1 % (0-3); EOS # 0.3 x10^3/uL (0.0-0.7); EOS % 5 % (0-3); HEMATOCRIT 32.7 % (36.0-47.0); HEMOGLOBIN 11.2 g/dL (12.0-15.5); LYMPH # 2.1 x10^3/uL (1.0-4.8); LYMPH % 32 % (24-48); MEAN CORPUSCULAR HEMOGLOBIN 31 pg (25-35); MEAN CORPUSCULAR HGB CONC 34 g/dL (31-37); MEAN CORPUSCULAR VOLUME 91 fL (79-100); MONO # 0.4 x10^3/uL (0.0-1.1); MONO % 7 % (0-9); NEUT # 3.8 x10^3/uL (1.8-7.7); NEUT % 57 % (31-73); PLATELET COUNT 190 x10^3/uL (140-400); RED BLOOD COUNT 3.58 x10^6/uL (3.50-5.40); RED CELL DISTRIBUTION WIDTH 15.1 % (11.5-14.5); WHITE BLOOD COUNT 6.7 x10^3/uL (4.0-11.0)
[2020-11-09 08:25] LABS: PROTHROMBIN TIME PATIENT 12.6 SEC (11.7-14.0)
[2020-11-09 08:50] LABS: ALBUMIN 2.7 g/dL (3.4-5.0); ALBUMIN/GLOBULIN RATIO 0.8 (1.0-1.7); CALCIUM 8.1 mg/dL (8.5-10.1); CREATININE 0.9 mg/dL (0.6-1.0); GFR 73.5; TOTAL BILIRUBIN 0.2 mg/dL (0.2-1.0)
[2020-11-09] MEDS: FAMOTIDINE 20 MG/2 ML VIAL IVP SCH (09:00)
[2020-11-09] MEDS ORDERED: NORG1TAB6 PO (09:36)
[2020-11-09] MEDS ORDERED: SERT100T PO (09:36)
[2020-11-09] MEDS ORDERED: BREX4TAB PO (09:36)
--- NOTE | 2020-11-09 09:46 | CONS ---
DATE OF CONSULTATION: 11/09/2020 PULMONARY CONSULTATION ATTENDING PHYSICIAN: Dr. Ruiz. REASON FOR CONSULTATION: Encephalopathy, drug overdose. HISTORY OF PRESENT ILLNESS: The patient is a 29-year-old female who is obese with a BMI of 35. She has a history of alcoholism. She has a history of anxiety disorder. She was brought into the hospital after patient took a bottle of trazodone and clonazepam along with drank alcohol. She was somewhat lethargic in the ER but since overnight she is now fully awake, following commands. She is currently on room air. The patient has attempted suicide before. Her chest x-ray did not reveal any acute abnormality. PAST MEDICAL HISTORY: Significant for history of anxiety, history of insomnia, history of alcoholism and tobaccoism. PAST SURGICAL HISTORY: No recent surgeries. SOCIAL HISTORY: As discussed above. ALLERGIES: None. MEDICATIONS: Reviewed as listed in the MRAD. REVIEW OF SYSTEMS: A 12-point system obtained. Pertinent positives discussed in my presence illness, otherwise noncontributory. All systems that were negative were reviewed as well. PHYSICAL EXAMINATION: VITAL SIGNS: Reviewed. Pulse ox 96% on room air. NECK: Supple. LUNGS: Clear. Rest of exam unremarkable. LABORATORY DATA: Labs were reviewed. White cell count 6.7, hemoglobin 11.2, platelets are 190. IMPRESSION: 1. Acute encephalopathy secondary to overdose of trazodone and clonazepam along with alcohol. Currently encephalopathy has completely resolved. 2. Suicidal ideation. 3. Clear chest x-ray. 4. History of alcoholism and tobaccoism. RECOMMENDATIONS: 1. From a pulmonary standpoint, she is stable. She is currently on room air and fully awake. 2. We will need psychiatric help. 3. Follow PCP recommendations. 4. We will sign off. Call us for any further recommendations. TRU DR: Bran TID: [id number]
[2020-11-09] MEDS ORDERED: SERTRALINE 50 MG TABLET. PO SCH (12:00)
--- NOTE | 2020-11-09 12:06 | NUR ---
SW following. Discussed with RN, pt from home, room air, NPO. Pt cleared by PAT - can discharge home, provided with resources. RN notified. Dr. Olvera plans on discharging pt home today. RN advised no further SW needs.
[2020-11-09] MEDS ORDERED: GABAPENTIN 400 MG CAPSULE. PO SCH (14:00)
[2020-11-09] MEDS ORDERED: CYCLOBENZAPRINE 10 MG TABLET. PO SCH (14:00)
--- NOTE | 2020-11-09 14:04 | DISCH ---
DISCHARGE INSTRUCTIONS Condition on Discharge Condition on Discharge: Stable Activity After Discharge Activity Instructions for Disc: Resume previous activity Lifting Instructions after Dis: Do not lift >10 pounds Exercise Instruction after Dis: Walk 15 min, 3 x per day Driving Instructions after Dis: Do not drive today Weight Bearing Status after Di: Full weight bearing Diet after Discharge Diet after Discharge: Regular Follow-Up Follow up with: PCP within 2 weeks of discharge Follow Up With: Psychiatrist as needed ENIO YANG MD Nov 09, 2020 14:04
--- NOTE | 2020-11-09 15:30 | NUR ---
Discharge Note: Patient was discharged home with self care. Patients IV was discontinued without any complications per EQUIPMENT APPLICATION SPECIALIST. Patient was cleared by PAT team last night. No need for suicide precautions. Patient received all personal belongings. Patient was given discharge summary/instructions, follow-ups, and educational material. Patient did not have any further questions or concerns. Patient was taken down to the main entrance via wheelchair with all personal belongings accompanied by [facility], where her father was waiting for her to take her home. Patient was given all medications from pharmacy at discharge.
[2020-11-09] MEDS ORDERED: NAPROXEN 500 MG TABLET PO SCH (17:00)
[2020-11-09] MEDS ORDERED: traZODone 100 MG TABLET. PO SCH (21:00)
[2020-11-10] MEDS ORDERED: NORGESTIMATE ETHINYL ESTRADIOL PO SCH (09:00)
[2020-11-10] MEDS ORDERED: NON FORMULARY ITEM (Brexpiprazole (Rexulti) 1 TAB) PO SCH (09:00)
--- NOTE | 2020-11-10 20:27 | PDOC3 ---
[facility]-Discharge Summary Date of Admission: Date of Admission: Nov 08, 2020 Date of Discharge: Date of Discharge: Nov 09, 2020 Discharge Diagnosis: Discharge Diagnosis: Acute alcohol intoxication Altered mental status Intentional overdose of multiple Meds ie, suicide attempt by multiple drug overdose polysubstance abuse including meth, THC encephalopathy, toxic, anxiety h/o long standing Fall mORBID OBESITY No acute intracranial abnormality by CT. Probable mild right frontal scalp contusion. Mild nasal bone complex deformity with under 2 mm of offset on the left. new from 2018 may be acute Hospital Course: Hospital Course: 29-year-old female presented to the emergency department with suspected overdose in a suicide attempt via EMS. patient took a handful of an unknown amount of pills in an attempt to end her life. EMS also reported that the patient drank unknown amount of alcohol. ETOH HERE WAS 237 admitted with suicide attempt by multiple drug overdose impression Acute alcohol intoxication Altered mental status Intentional overdose of multiple Meds ie, suicide attempt by multiple drug overdose hx polysubstance abuse including meth, THC acute metabolic encephalopathy, toxic, anxiety h/o long standing / Fall / MORBID OBESITY No acute intracranial abnormality by CT. Probable mild right frontal scalp contusion. Mild nasal bone complex deformity with under 2 mm of offset on the left. new from 2019 NEEDS ICU BED PLAN suicide precautions // IV FLUID SUPPORT // Neurochecks q hr dvt p rophylaxis gi prophylaxis d/w er and dr babin in icu 10:24 Pt cleared by JORDEN dai discharge home, provided with resources. By day of discharge, pt was clinically stable and ready for discharge. Rest of hospital course was uneventful Disposition: Disposition/Orders: D/C to Home Activity: Activity: Resume previous activity Diet: Diet: Regular Medications: Home Meds Reported Medications Brexpiprazole (Rexulti) 4 Mg Tablet, 1 TAB PO DAILY for depression for 30 Days, #30 TAB 0 Refills 11/09/20 Norgestimate-Ethinyl Estradiol (SPRINTEC) 1 Each Tablet, 1 TAB PO DAILY for control, #28 TAB 11 Refills 11/09/20 Sertraline Hcl (ZOLOFT) 100 Mg Tablet, 2 TAB PO DAILY for depression, #30 TAB 5 Refills 11/09/20 Trazodone Hcl (TRAZODONE HCL) 100 Mg Tablet, 200 MG PO HS for sleep, TAB 11/09/20 Naproxen (NAPROXEN) 500 Mg Tablet, 1 TAB PO BID, #60 TAB 1 Refill 03/11/16 Cyclobenzaprine Hcl (CYCLOBENZAPRINE HCL) 10 Mg Tablet, 1 TAB PO TID, #90 TAB 03/11/16 Gabapentin (GABAPENTIN) 800 Mg Tablet, 800 MG PO TID, TAB 03/11/16 Discontinued Reported Medications Clonazepam (CLONAZEPAM) 1 Mg Tablet, 1 MG PO BID for FOR ANXIETY, TAB 11/09/20 Scheduled Brexpiprazole (Rexulti), 1 TAB PO DAILY, (Reported) Cyclobenzaprine Hcl (Cyclobenzaprine Hcl), 1 TAB PO TID, (Reported) Gabapentin (Gabapentin), 800 MG PO TID, (Reported) Naproxen (Naproxen), 1 TAB PO BID, (Reported) Norgestimate-Ethinyl Estradiol (Sprintec), 1 TAB PO DAILY, (Reported) Sertraline Hcl (Zoloft), 2 TAB PO DAILY, (Reported) Trazodone Hcl (Trazodone Hcl), 200 MG PO HS, (Reported) Discontinued Medications Clonazepam (Clonazepam), 1 MG PO BID, (Reported) Total Time: Total Time: Total time spent was 35 minutes in preparing scripts, discharge planning with SW and RN, and preparing this discharge summary. Patient seen and examined on day of discharge. Justicifation of Admission Dx: Justifications for Admission: Justification of Admission Dx: Yes Altered Mental Status: Altered Mental Status ENIO YANG MD Nov 10, 2020 20:27
== END 2020-11-09 15:30 | disposition home or self-care (01) ==
LOC: ER 05:29 → INTOOBSV 09:27 → ED HOLD 09:27 → 5 NORTH 11-09 01:10
PROVIDERS: ADMIT Family Medicine; ATTEND Family Medicine
DX: F10.129 Alcohol abuse with intoxication, unspecified (principal); T43.212A Poisoning by selective serotonin and norepinephrine reuptake inhibitors, intentional self-harm, initial encounter; S00.03XA Contusion of scalp, initial encounter; S00.10XA Contusion of unspecified eyelid and periocular area, initial encounter; G92 Toxic encephalopathy; E66.01 Morbid (severe) obesity due to excess calories; F17.210 Nicotine dependence, cigarettes, uncomplicated; F41.9 Anxiety disorder, unspecified; Z68.35 Body mass index [BMI] 35.0-35.9, adult; Y92.89 Other specified places as the place of occurrence of the external cause; Z79.899 Other long term (current) drug therapy
CPT/HCPCS: 36415; 70450; 70486; 71045; 72125; 80053; 80307; 80329; 81001; 81025; 82962; 83735; 84443; 84484; 85025; 85610; 85730; 87040; 93005; 96361; 96372; 96374; 96376; 97161; 97165; 99285; G0378; G0480; J1644; J3480; J3490; J7030; G0379